=== PATIENT | female | born 1955 | race Caucasian/White ===

== ENCOUNTER → 2017-08-26 11:10 | Outpatient (CLI) | payer MEDICAID, SELFPAY ==
[2017-08-26 11:41] LABS: Basophils % 0.7 % (0.1-2.0); Eosinophils # 0.1 K/mm3 (0.0-0.4); Eosinophils % 2.3 % (0.1-12.0); Hematocrit 31.5 % (37.0-47.0); Hemoglobin 9.6 g/dL (12.2-16.2); Lymphocytes # 1.1 K/mm3 (0.7-4.5); Lymphocytes % 29.8 K/mm3 (10-50); Mean Corpuscular HGB Conc 30.6 g/dL (31.8-35.4); Mean Corpuscular Hemoglobin 26.3 pg (27.0-31.2); Mean Corpuscular Volume 86.2 fl (81-99); Mean Platelet Volume 8.2 fl (7.4-10.4); Monocytes # 0.3 K/mm3 (0.1-1.0); Monocytes % 8.1 % (1.7-9.3); Neutrophils # 2.2 K/mm3 (1.8-7.8); Neutrophils % 59.1 % (37.0-80.0); Platelet Count 277 K/mm3 (142-424); Red Blood Count 3.66 M/mm3 (4.20-5.40); Red Cell Distribution Width 13.4 % (11.5-17.5); White Blood Count 3.7 K/mm3 (4.8-10.8)
[2017-08-26 13:01] LABS: Alanine Aminotransferase 27 U/L (12-78); Albumin Level 3.4 gm/dL (3.4-5.0); Albumin/Globulin Ratio 1.1 (1.1-1.8); Alkaline Phosphatase 130 U/L (46-116); Anion Gap 9.9 mEq/L (5-15); Aspartate Amino Transferase 24 U/L (15-37); Bilirubin,Total 0.3 mg/dL (0.2-1.0); Blood Urea Nitrogen 13 mg/dL (7-18); Calcium 8.9 mg/dL (8.5-10.1); Carbon Dioxide 28 mmol/L (21.0-32.0); Chloride 107 mmol/L (98-107); Creatinine,Serum 0.59 mg/dL (0.55-1.02); Estimated Glomerular Filt Rate > 60 ml/min (>60); GFR (African American) > 60 ML/MIN (>60); Glucose 76 mg/dL (74-106); Potassium 3.9 mmoL/L (3.5-5.1); Sodium 141 mmol/L (136-145); Total Protein,Serum 6.4 gm/dL (6.4-8.2)
== END ==
PROVIDERS: PCP Family Medicine; Visit Provider Family Medicine
DX: M06.9 Rheumatoid arthritis, unspecified (principal); Z79.899 Other long term (current) drug therapy
CPT/HCPCS: 36415; 80053; 85025

== ENCOUNTER 2017-09-04 10:30 | Outpatient (RCR) | payer MEDICAID, SELFPAY | END 2017-09-04 23:59 | LOC: PT 10:30 | PROVIDERS: Family Provider Family Medicine; Visit Provider Orthopaedic Surgery Adult Reconstructive Orthopaedic Surgery | DX: M54.40 Lumbago with sciatica, unspecified side (principal) | CPT/HCPCS: 97010; 97012; 97014; G0283 ==

== ENCOUNTER 2017-09-06 11:34 | Emergency (ER) | payer MEDICAID, SELFPAY ==
[2017-09-06 12:09] VITALS: BP 95/74; PULSE 84; RESP 20; TEMP 37.3; O2SAT 95; BMI 35.7
--- NOTE | 2017-09-06 12:30 | HMH.EDUTC ---
[facility] [place] Clinical Impression: Influenza A Disposition: Home, Self-Care Condition on Discharge: Good Instructions: DI for Influenza -- Adult Additional Instructions: * Start Tamiflu today if you are going to take it. Discussed risks and possible benefits. * Lots of rest * Increase fluids, water, gatorade, powerade, pedialyte if /toddler/child * Monitor Temp. Tylenol every 4 hours as needed no more then 5 times a day or 4000mg in 24 hours and/or ibuprofen every 6 hours as needed no more then 3200mg in 24 hours (as long as your primary care doctor has told you that it is ok to take both) for fever/aches/pain. ER if fever no less than 101 despite tylenol and Ibuprofen * OTC cold/flu/sinus medication is ok but pick one. Do not take multiple different ones as they have similar ingredients and you can overdose on cold medication. * You (or your child) are contagious until no fever, aches, chills x 24 hours without medication for symptoms. Prescriptions: Oseltamivir Phosphate [Tamiflu 75mg Capsule] 75 mg PO BID #10 capsule Referrals: Jeronimo Guadarrama MD [Primary Care Provider] - Time of Disposition: 12:32 Medical Decision Making Vital Signs: 09/06/17 12:09 09/06/17 12:35 Temperature 99.1 F 99.1 F Temperature Source Temporal Artery Scan Pulse Rate 84 Pulse Rate [Left Brachial] 84 Respiratory Rate 20 20 Blood Pressure 95/74 Blood Pressure [Left Arm] 95/74 Blood Pressure Mean [Left Arm] 81 Blood Pressure Source [Left Arm] Automatic Cuff Blood Pressure Position [Left Arm] Sitting 02 Sat by Pulse Oximetry 95 Oxygen Delivery Method Room Air - Lab Data Lab results reviewed: Yes: I reviewed the patient's lab results. Lab Results 09/06/17 12:18: Influenza Type A Ag Positive A, Influenza Type B Ag Negative - Vishal Inquiry Pt receiving controlled substance: No [facility] [place] - General Stated complaint: Sore throat,headache,earache Time Seen by Provider: 09/06/17 12:00 Mode of Arrival: Ambulatory Source of Information: Patient Limitations: No Limitations Description of Symptoms (Recalled from Triage Doc. by RN): c/o jewell, cough, and sore throat HEENT Symptoms (Recalled from RN notes): Yes (jewell, sore throat) Resp Symptoms (Recalled from RN notes): Yes (cough) Skin Symptoms (Recalled from RN notes): No MS Symptoms (Recalled from RN notes): No Functional Status (Recalled from RN notes): n/a - History of Present Illness Provider Complaint: c/o I think I have the flu . Started yesterday evening with sore throat, rhinorrhea, nasal congestion. Woke up this morning with fatigue and cough. Has felt feverish and slightly achy but no fever or real body aches however takes 800mg ibuprofen TID for RA. Has had flu vaccine. No known sick contacts. Is not currently on immunosuppresant, last took May 2017. - Related Data Previous Rx's Medication Instructions Recorded Oseltamivir Phosphate [Tamiflu 75 mg PO BID #10 capsule 09/06/17 75mg Capsule] Allergies Allergy/AdvReac Type Severity Reaction Status Date / Time No Known Allergies Allergy Verified 09/06/17 12:18 - Worker's Comp Is this a Worker's Comp case?: No H History I have reviewed the patient's past medical history: Yes (RA, osteoarthritis, depression, borderline HTN) Medical History: Denies:: Cancer, Diabetes Mellitus Type 1, Diabetes Mellitus Type 2, MRSA Laterality Cases: Left: Total Hip Replacement Amputation: No Fractures: No - *Social History Smoking Status: Never smoker Alcohol Intake: never - Psychiatric History Expresses thoughts of harming self/others: None Suicide Plan Description: No Plan ROS Obtained: Yes Systems reviewed as appropriate & no additional complaints - Constitutional Constitutional: Reports as per HPI, Reports chills, Denies poor appetite - Eyes Eyes: Denies eye discharge - ENT Ears, Nose, Mouth, and Throat: Denies difficulty swallowing, Reports otalgia, Reports nasal congestion, R
[2017-09-06 12:32] LABS: UTC Influenza A Antigen Positive (Negative); UTC Influenza B Antigen Negative (Negative)
[2017-09-06 12:35] VITALS: BP 95/74; PULSE 84; RESP 20; TEMP 37.3; O2SAT 96
== END 2017-09-06 12:40 | disposition home or self-care (01) ==
PROVIDERS: Emergency Provider Nurse Practitioner Family; Family Provider Family Medicine; PCP Family Medicine
DX: J10.1 Influenza due to other identified influenza virus with other respiratory manifestations (principal); R03.0 Elevated blood-pressure reading, without diagnosis of hypertension
CPT/HCPCS: 87804; 99202

== ENCOUNTER → 2017-09-10 12:01 | Outpatient (CLI) | payer MEDICAID, SELFPAY ==
--- NOTE | 2017-09-10 12:07 | XR_ITS ---
XR chest 2V HISTORY: ITS.REASON: BRONCHITIS, cough ORDERING PHYSICIAN: STEPHANIE Toussaint PATIENT AGE: 62 years COMPARISON: 06/15/2017 FINDINGS: The cardiomediastinal silhouette and pulmonary vascularity are within normal limits. The lungs are clear without infiltrates, suspicious nodules, or pleural effusions. There are degenerative changes in the lower thoracic spine with mild lower thoracic curvature convex right. Severe osteoarthritic changes are present in the shoulders. IMPRESSION: 1. No acute finding. 2. Severe osteoarthritis of the shoulders
== END ==
PROVIDERS: PCP Family Medicine; Visit Provider Physician Assistant
DX: J40 Bronchitis, not specified as acute or chronic (principal)
CPT/HCPCS: 71046

== ENCOUNTER 2017-09-17 11:00 | Outpatient (RCR) | payer MEDICAID, SELFPAY | END 2017-09-17 11:01 | disposition home or self-care (01) | LOC: PT 11:00 | PROVIDERS: Family Provider Family Medicine; Visit Provider Orthopaedic Surgery Adult Reconstructive Orthopaedic Surgery | DX: Z96.651 Presence of right artificial knee joint (principal); M25.561 Pain in right knee | CPT/HCPCS: 97010; 97014; 97110; 97140; G0283 ==

== ENCOUNTER → 2017-11-09 14:06 | Outpatient (CLI) | payer MEDICARE, MEDICAID, SELFPAY ==
--- NOTE | 2017-11-09 14:08 | CA_ITS ---
PROCEDURE: 2-D M-mode and color Doppler study INDICATIONS FOR THE TEST: Chest pain COPD Heart Murmur Tobacco Smoking Palpitations FatigueX Syncope Edema HypertensionXDiabetes Mellitus Rheumatic Fever SOB DOEXObesityXHyperlipidemiaX Family History HD Additional History PATIENT INFORMATION HEIGHT: 64 WEIGHT:250 GENDER: Female B/P:136/82 2-D/M-MODE INTERPRETATION: 2-D MEASUREMENTS OBSERVED VALUES IN CMS Right Ventricular Dimension (RVDd) 1.8 Interventricular Septum (Thickness)(IVsd) 1.1 Left Ventricular Internal Dimensions(LVIDd) 4.3 Left Ventricular Posterior Wall (Thickness)(LVPWd) 1.0 Aortic Root 3.7 Aortic Cusp Separation 2.0 Left Atrial Dimensions (LAD) 3.7 2D 1. Left atrium is mildly enlarged, left ventricle is normal size, there is mild qualitative concentric left ventricular hypertrophy, visually estimated ejection fraction 55% with no obvious regional wall motion abnormality. 2. The right atrium and right ventricle are normal size and contractility. 3. The aortic valve is minimally thickened and fibrosed. 4. The mitral and tricuspid valve leaflets are minimally thickened. 5. The pulmonic valve is poorly visualized. 6. No significant pericardial effusion noted. DOPPLER INTERROGATION: Doppler interrogation of the aortic, mitral and tricuspid valvular presence of mild mitral and tricuspid regurgitation, calculated right ventricular systolic pressure is 39 mmHg consistent with mild pulmonary hypertension, grade 1 diastolic dysfunction seen with tissue Doppler evidence of raised left atrial pressure. CONCLUSION: 1. Mildly enlarged left atrium, normal left ventricular size, mild qualitative concentric left ventricular hypertrophy, visually estimated ejection fraction 55% with no obvious regional wall motion abnormality, grade 1 diastolic dysfunction seen with tissue Doppler evidence of grade left atrial pressure. 2. Mild mitral and tricuspid regurgitation, calculated right ventricular systolic pressure 39 mmHg consistent with mild pulmonary hypertension. 3. No significant pericardial effusion noted.
[2017-11-09 15:21] LABS: Basophils % 0.3 % (0.1-2.0); Eosinophils # 0.1 K/mm3 (0.0-0.4); Eosinophils % 1.1 % (0.1-12.0); Hematocrit 39.1 % (37.0-47.0); Hemoglobin 12.3 g/dL (12.2-16.2); Lymphocytes # 0.9 K/mm3 (0.7-4.5); Mean Corpuscular HGB Conc 31.4 g/dL (31.8-35.4); Mean Corpuscular Hemoglobin 29.1 pg (27.0-31.2); Mean Corpuscular Volume 92.9 fl (81-99); Mean Platelet Volume 7.7 fl (7.4-10.4); Monocytes # 0.3 K/mm3 (0.1-1.0); Monocytes % 8.4 % (1.7-9.3); Neutrophils # 2.7 K/mm3 (1.8-7.8); Neutrophils % 67.2 % (37.0-80.0); Platelet Count 209 K/mm3 (142-424); Red Blood Count 4.21 M/mm3 (4.20-5.40); Red Cell Distribution Width 18.3 % (11.5-17.5); White Blood Count 4.1 K/mm3 (4.8-10.8)
[2017-11-09 15:44] LABS: Alanine Aminotransferase 40 U/L (12-78); Albumin Level 3.6 gm/dL (3.4-5.0); Alkaline Phosphatase 131 U/L (46-116); Anion Gap 10.6 mEq/L (5-15); Aspartate Amino Transferase 30 U/L (15-37); Bilirubin,Total 0.3 mg/dL (0.2-1.0); Blood Urea Nitrogen 15 mg/dL (7-18); Calcium 9.2 mg/dL (8.5-10.1); Carbon Dioxide 30 mmol/L (21.0-32.0); Chloride 104 mmol/L (98-107); Creatinine,Serum 0.55 mg/dL (0.55-1.02); Estimated Glomerular Filt Rate 113 ml/min (>60); GFR (African American) 136 ML/MIN (>60); Globulin 3.7 gm/dl (1.3-3.2); Glucose 92 mg/dL (74-106); Potassium 4.6 mmoL/L (3.5-5.1); Sodium 140 mmol/L (136-145); Total Protein,Serum 7.3 gm/dL (6.4-8.2)
== END ==
PROVIDERS: Internal Medicine Rheumatology; Family Provider Family Medicine; PCP Family Medicine; Visit Provider Internal Medicine
DX: R06.09 Other forms of dyspnea (principal); I25.118 Atherosclerotic heart disease of native coronary artery with other forms of angina pectoris; I10 Essential (primary) hypertension; R07.89 Other chest pain; E78.4 Other hyperlipidemia
CPT/HCPCS: 36415; 80053; 85025; 93306

== ENCOUNTER → 2017-11-23 10:14 | Outpatient (CLI) | payer MEDICARE, MEDICAID, SELFPAY ==
--- NOTE | 2017-11-23 10:20 | MM_ITS ---
MM Dig screening mamm BI w/CAD CAD Screening COMPARISON: Digital mammograms 11/27/2016 and 09/14/2015 INDICATION: There is no personal or family history of breast cancer TECHNIQUE: Standard CC and MLO images were obtained. R2 CAD reviewed. FINDINGS: Scattered fibroglandular densities are seen throughout both breast on the background of fatty breast parenchyma. There is no new or suspicious lesion in either breast and no suspicious microcalcifications. IMPRESSION: Fibrofatty parenchyma with no suspicious lesion seen BI-RADS Category: 1 Negative RECOMMENDED FOLLOW-UP: 1YR - 1 YEAR FOLLOW-UP (A letter has been sent to the patient regarding results of the study.)
[2017-11-23 12:21] LABS: Anion Gap 9.6 mEq/L (5-15); Blood Urea Nitrogen 13 mg/dL (7-18); Carbon Dioxide 32 mmol/L (21.0-32.0); Chloride 105 mmol/L (98-107); Creatinine,Serum 0.61 mg/dL (0.55-1.02); Estimated Glomerular Filt Rate 100 ml/min (>60); GFR (African American) 121 ML/MIN (>60); Glucose 76 mg/dL (74-106); Potassium 3.6 mmoL/L (3.5-5.1); Sodium 143 mmol/L (136-145)
== END ==
PROVIDERS: Physician Assistant; PCP Family Medicine; Visit Provider Family Medicine
DX: I25.10 Atherosclerotic heart disease of native coronary artery without angina pectoris (principal); R07.9 Chest pain, unspecified; R06.00 Dyspnea, unspecified; E78.5 Hyperlipidemia, unspecified; I10 Essential (primary) hypertension; I51.9 Heart disease, unspecified; I27.20 Pulmonary hypertension, unspecified; Z12.31 Encounter for screening mammogram for malignant neoplasm of breast
CPT/HCPCS: 36415; 77067; 80048

== ENCOUNTER 2017-12-21 09:30 | Outpatient (RCR) | payer MEDICARE, MEDICAID, SELFPAY | END 2017-12-21 09:31 | disposition home or self-care (01) | LOC: PT 09:30 | PROVIDERS: Family Provider Family Medicine; PCP Family Medicine; Visit Provider Internal Medicine Rheumatology | DX: M79.1 Myalgia (principal) | CPT/HCPCS: 97010; 97014; 97035; 97110; 97140; G0283 ==

== ENCOUNTER → 2018-03-04 11:22 | Outpatient (CLI) | payer MEDICARE, SELFPAY ==
[2018-03-04 12:00] LABS: Basophils % 0.4 % (0.1-2.0); Eosinophils # 0.1 K/mm3 (0.0-0.4); Eosinophils % 1.2 % (0.1-12.0); Hematocrit 44.1 % (37.0-47.0); Hemoglobin 13.8 g/dL (12.2-16.2); Lymphocytes # 1.3 K/mm3 (0.7-4.5); Lymphocytes % 21.6 K/mm3 (10-50); Mean Corpuscular HGB Conc 31.3 g/dL (31.8-35.4); Mean Corpuscular Hemoglobin 31.9 pg (27.0-31.2); Mean Corpuscular Volume 101.9 fl (81-99); Mean Platelet Volume 7.5 fl (7.4-10.4); Monocytes # 0.3 K/mm3 (0.1-1.0); Monocytes % 5.1 % (1.7-9.3); Neutrophils # 4.3 K/mm3 (1.8-7.8); Neutrophils % 71.7 % (37.0-80.0); Platelet Count 257 K/mm3 (142-424); Red Blood Count 4.33 M/mm3 (4.20-5.40); Red Cell Distribution Width 13.7 % (11.5-17.5)
[2018-03-04 12:25] LABS: Alanine Aminotransferase 28 U/L (12-78); Albumin Level 3.7 gm/dL (3.4-5.0); Albumin/Globulin Ratio 1.1 (1.1-1.8); Alkaline Phosphatase 115 U/L (46-116); Anion Gap 11.7 mEq/L (5-15); Aspartate Amino Transferase 20 U/L (15-37); Bilirubin,Total 0.5 mg/dL (0.2-1.0); Blood Urea Nitrogen 11 mg/dL (7-18); Calcium 9.2 mg/dL (8.5-10.1); Carbon Dioxide 29 mmol/L (21.0-32.0); Chloride 108 mmol/L (98-107); Creatinine,Serum 0.65 mg/dL (0.55-1.02); Estimated Glomerular Filt Rate 93 ml/min (>60); GFR (African American) 113 ML/MIN (>60); Globulin 3.3 gm/dl (1.3-3.2); Glucose 72 mg/dL (74-106); Potassium 3.7 mmoL/L (3.5-5.1); Sodium 145 mmol/L (136-145)
== END ==
PROVIDERS: Visit Provider Internal Medicine Rheumatology
DX: Z79.899 Other long term (current) drug therapy (principal); M06.9 Rheumatoid arthritis, unspecified
CPT/HCPCS: 36415; 80053; 85025

== ENCOUNTER → 2018-05-31 13:34 | Outpatient (CLI) | payer MEDICARE, SELFPAY ==
[2018-05-31 15:12] LABS: Basophils % 0.4 % (0.1-2.0); Eosinophils # 0.1 K/mm3 (0.0-0.4); Eosinophils % 1.5 % (0.1-12.0); Hemoglobin 11.8 g/dL (12.2-16.2); Lymphocytes # 1.7 K/mm3 (0.7-4.5); Lymphocytes % 38.8 K/mm3 (10-50); Mean Corpuscular HGB Conc 32.7 g/dL (31.8-35.4); Mean Platelet Volume 7.1 fl (7.4-10.4); Monocytes # 0.3 K/mm3 (0.1-1.0); Monocytes % 7.3 % (1.7-9.3); Neutrophils # 2.2 K/mm3 (1.8-7.8); Neutrophils % 51.9 % (37.0-80.0); Platelet Count 259 K/mm3 (142-424); Red Blood Count 3.56 M/mm3 (4.20-5.40); Red Cell Distribution Width 13.8 % (11.5-17.5); White Blood Count 4.3 K/mm3 (4.8-10.8)
[2018-05-31 15:45] LABS: Alanine Aminotransferase 23 U/L (12-78); Albumin Level 3.5 gm/dL (3.4-5.0); Albumin/Globulin Ratio 1.2 (1.1-1.8); Alkaline Phosphatase 117 U/L (46-116); Anion Gap 10.1 mEq/L (5-15); Aspartate Amino Transferase 17 U/L (15-37); Bilirubin,Total 0.4 mg/dL (0.2-1.0); Blood Urea Nitrogen 11 mg/dL (7-18); Calcium 8.7 mg/dL (8.5-10.1); Carbon Dioxide 29 mmol/L (21.0-32.0); Chloride 105 mmol/L (98-107); Creatinine,Serum 0.59 mg/dL (0.55-1.02); Estimated Glomerular Filt Rate 104 ml/min (>60); GFR (African American) 125 ML/MIN (>60); Glucose 94 mg/dL (74-106); Potassium 4.1 mmoL/L (3.5-5.1); Sodium 140 mmol/L (136-145); Total Protein,Serum 6.5 gm/dL (6.4-8.2)
== END ==
PROVIDERS: PCP Family Medicine; Visit Provider Internal Medicine Rheumatology
DX: Z79.899 Other long term (current) drug therapy (principal); M06.9 Rheumatoid arthritis, unspecified
CPT/HCPCS: 36415; 80053; 85025

== ENCOUNTER → 2018-07-19 07:53 | Outpatient (CLI) | payer MEDICARE, SELFPAY ==
--- NOTE | 2018-07-19 07:55 | MR_ITS ---
MR head/brain wo con HISTORY: ITS.REASON: headache, neck pain ORDERING PHYSICIAN: Deborah Sal MD PATIENT AGE: 63 years Comparison: None TECHNIQUE: Standard multiplanar multiecho sequences are performed without contrast. FINDINGS: No midline shift, mass effect, intracranial hemorrhage, or hydrocephalus is evident. No evidence of acute infarction. No intra or extra-axial mass. There is normal roberts-white matter differentiation. The pituitary and optic chiasm are unremarkable. Unremarkable craniocervical junction. The cerebellopontine angles, cerebellum, and brainstem are unremarkable. Minimal amount of fluid is present in the left mastoid sinus. No paranasal sinus air-fluid level. IMPRESSION: No acute intracranial findings, negative MRI of the brain Minimal fluid in the left mastoid sinus
== END ==
PROVIDERS: PCP Family Medicine; Visit Provider Specialist
DX: G47.33 Obstructive sleep apnea (adult) (pediatric) (principal); M54.2 Cervicalgia; R51 Headache
CPT/HCPCS: 70551

== ENCOUNTER → 2018-08-02 12:27 | Outpatient (CLI) | payer MEDICARE, SELFPAY ==
--- NOTE | 2018-08-02 12:32 | XR_ITS ---
XR foot wt bearing LT 3V HISTORY: ITS.REASON: pain ORDERING PHYSICIAN: Roma Hernandez DPM PATIENT AGE: 63 years COMPARISON: 02/02/2017 FINDINGS: There is moderate hallux valgus with osteoarthritis of the first metatarsal phalangeal joint. The first metatarsal-phalangeal angle is approximately 35 degrees previously 30 degrees. Osteoarthritis is present at the first MTP joint and at the first metatarsal tarsal joint. Hypertrophic changes are present at the distal first metatarsal. There is pes planus with osteoarthritis of the talonavicular joint with bony hypertrophy dorsally. No fracture or dislocation. No lytic or blastic change. IMPRESSION: Moderate hallux valgus with osteoarthritis of the first MTP joint and the first metatarsal tarsal joint with bunion formation and with pes planus and osteoarthritis of the talonavicular joint
--- NOTE | 2018-08-02 12:32 | XR_ITS ---
XR ankle wt bearing RT min 3V HISTORY: Ankle pain ITS.REASON: pain ORDERING PHYSICIAN: Roma Hernandez DPM PATIENT AGE: 63 years Comparison: None FINDINGS: Tibiotalar joint has an unremarkable appearance. There is pes planus with osteoarthritis of the foot as described in report. IMPRESSION: Negative ankle
--- NOTE | 2018-08-02 12:32 | XR_ITS ---
XR foot wt bearing RT 3V HISTORY: Foot pain ITS.REASON: pain ORDERING PHYSICIAN: Roma Hernandez DPM PATIENT AGE: 63 years COMPARISON: 02/02/2017 FINDINGS: There are moderate osteoarthritic changes of the first metatarsal tarsal joint with bony hypertrophy with osteoarthritis also at the second third fourth and fifth metatarsal tarsal joints which appear slightly worse on today's study. Mild osteoarthritis also noted at the talar calcaneal joint. Prominent bony hypertrophy dorsally at the talonavicular joint with pes planus. 10 mm calcaneal spur. Flexion deformity of the second toe. No fracture or dislocation. IMPRESSION: Osteoarthritic changes are present at the tarsometatarsal junction, talonavicular joint, and talocalcaneal joint. These findings have progressed compared to the previous exam and there is also mild to moderate pes planus
--- NOTE | 2018-08-02 12:32 | XR_ITS ---
XR ankle wt bearing LT min 3V : ITS.REASON: pain ORDERING PHYSICIAN: Roma Hernandez DPM PATIENT AGE: 63 years FINDINGS: No fracture or dislocation. No lytic or blastic change. There is normal mineralization.. The joint spaces are well-preserved. There is pes planus. Osteoarthritic changes are present at the talonavicular joint with hypertrophic changes. IMPRESSION: Negative ankle Osteoarthritic changes of the foot. Please see foot report for further description
== END ==
PROVIDERS: PCP Family Medicine; Visit Provider Podiatrist
DX: M25.571 Pain in right ankle and joints of right foot; M25.572 Pain in left ankle and joints of left foot; M79.671 Pain in right foot; M79.672 Pain in left foot
CPT/HCPCS: 73610; 73630

== ENCOUNTER → 2018-08-09 14:55 | Outpatient (CLI) | payer MEDICARE, SELFPAY ==
--- NOTE | 2018-08-09 14:56 | US_ITS ---
US Arterial Ankle Brachial Ind HISTORY: ITS.REASON: Skin ChangesNo rest pain diabetic previous angioplasty smoker previously hypertension. TECHNIQUE: Segmental pressures obtained of both right and left leg. These are compared to brachial blood pressure to yield index at each level sampled including summary RAFA. The data sheets from the procedure are available in PACS FINDINGS Rest study only performed today No prior studies available for comparison. Blood pressures reported are in millimeters mercury. RIGHT LEG RAFA = 1.1. Right TBI = 0.6 Brachial BP: 118 Thigh BP: BP 132 with index 1.12 Calf BP: BP 160 with index 0.98 Ankle PT: BP 128 with index 1.08 Ankle DP : BP 117 with index 0.99 Digit =BP 70 with index 0.59 LEFT LEG RAFA = 1.0 Left TBI = 0.5 Brachial BPD: BP 117 Thigh BP: BP 148 with index 1.25 Calf BP: BP 123 with index 1.04 Ankle PT:BP 120 with index 1.02 Ankle DP: BP 128 with index 1.08 Digit = BP 63 with index 0.53 Normal pulses and waveforms bilateral waveforms are perhaps slightly more robust at right ankle thanLeft but satisfactory bilaterally IMPRESSION:...... Waveforms and pulses normal bilaterally. Normal ABIs bilaterally. Diminished TBIs, on left more than right RIGHT LEG RAFA = 1.1. Right TBI = 0.6 LEFT LEG RAFA = 1.0 Left TBI = 0.5
[2018-08-09 16:28] LABS: Basophils % 0.3 % (0.1-2.0); Eosinophils # 0.1 K/mm3 (0.0-0.4); Hematocrit 38.2 % (37.0-47.0); Hemoglobin 12.2 g/dL (12.2-16.2); Lymphocytes # 1.5 K/mm3 (0.7-4.5); Lymphocytes % 23.9 % (10-50); Mean Corpuscular Hemoglobin 32.9 pg (27.0-31.2); Mean Corpuscular Volume 102.7 fl (81-99); Mean Platelet Volume 7.3 fl (7.4-10.4); Monocytes # 0.4 K/mm3 (0.1-1.0); Monocytes % 6.6 % (1.7-9.3); Neutrophils # 4.1 K/mm3 (1.8-7.8); Neutrophils % 67.2 % (37.0-80.0); Platelet Count 247 K/mm3 (142-424); Red Blood Count 3.72 M/mm3 (4.20-5.40); Red Cell Distribution Width 13.2 % (11.5-17.5); White Blood Count 6.2 K/mm3 (4.8-10.8)
[2018-08-09 19:05] LABS: Alanine Aminotransferase 27 U/L (12-78); Albumin Level 3.3 gm/dL (3.4-5.0); Albumin/Globulin Ratio 1.1 (1.1-1.8); Alkaline Phosphatase 122 U/L (46-116); Aspartate Amino Transferase 16 U/L (15-37); Bilirubin,Total 0.2 mg/dL (0.2-1.0); Blood Urea Nitrogen 14 mg/dL (7-18); Calcium 8.7 mg/dL (8.5-10.1); Carbon Dioxide 28 mmol/L (21.0-32.0); Chloride 104 mmol/L (98-107); Creatinine,Serum 0.79 mg/dL (0.55-1.02); Estimated Glomerular Filt Rate 74 ml/min (>60); GFR (African American) 90 ML/MIN (>60); Globulin 3.1 gm/dl (1.3-3.2); Glucose 102 mg/dL (74-106); Sodium 140 mmol/L (136-145); Total Protein,Serum 6.4 gm/dL (6.4-8.2)
== END ==
PROVIDERS: PCP Family Medicine; Visit Provider Podiatrist
DX: R09.89 Other specified symptoms and signs involving the circulatory and respiratory systems (principal)
CPT/HCPCS: 36415; 80053; 85025; 93922

== ENCOUNTER → 2018-08-13 12:01 | Outpatient (CLI) | payer MEDICARE, MEDICAID, SELFPAY ==
[2018-08-13 11:08] LABS: C-Reactive Protein 0.5 mg/L (0.0-0.9)
[2018-08-13 11:43] LABS: Erythrocyte Sedimentation Rate 42 mm/hr (0-30)
== END ==
PROVIDERS: Visit Provider Specialist
DX: R51 Headache (principal); M06.9 Rheumatoid arthritis, unspecified; Z79.899 Other long term (current) drug therapy
CPT/HCPCS: 36415; 85651; 86140

== ENCOUNTER → 2018-09-06 15:04 | Outpatient (CLI) | payer MEDICARE, MEDICAID, SELFPAY ==
[2018-09-10 17:06] LABS: QuantiFERON-TB Gold Plus Negative (Negative)
== END ==
PROVIDERS: Visit Provider Internal Medicine Rheumatology
DX: M06.9 Rheumatoid arthritis, unspecified (principal); Z79.899 Other long term (current) drug therapy
CPT/HCPCS: 36415; 86480

== ENCOUNTER 2018-12-16 10:00 | Outpatient (RCR) | payer MEDICARE, MEDICAID, SELFPAY ==
--- NOTE | 2018-08-30 13:28 | HMH.PTOPEV ---
PT Outpatient Evaluation Rehab PT Outpatient Evaluation Start: 08/30/18 09:36 Freq: Status: Active Protocol: Document 08/30/18 10:49 GERBER (Rec: 08/30/18 10:59 PHORNE [id number]) Electronically Signed By Jonathan Hammer, PT 08/30/18 10:49 Outpatient Therapy Subjective History Subjective History Pt is a 63 nyowf who presents with c/o frequent intermittent headaches x ~ 1 yr. She reports gradually worsening headache with insidious onset of symptoms. She reports infrequent episodes of dizziness as well. She had MRI of the brain which was negative for any known pathology. PMH: anxiety, depression, CAD, HTN, asthma, migraine, left ARI, CCY, RA. Chief Complaint Pain Symptom Type Ache Throb Symptoms Relieved By Prescription Meds Symptoms Aggravated By Physical Activity Prior Functional Limitations Housework Driving Current Functional Limitations Housework Driving Symptom Description Intermittent Level of pain today (0-10) 5 Pain scale - at its worst (0-10) 10 Cervical Eval Palpation Cervical Muscles R Cervical Paraspinal L Cervical Paraspinal R Suboccipital L Suboccipital R Upper Trapezius L Upper Trapezius Cervical/Thoracic Palpation Findings Tenderness Spasm Muscle Guarding Flexibility Deficits Upper Trapezius Muscle Length (R) Mild Tightness (L) Mild Tightness Levaetor Scapulae Muscle Length (R) Mild Tightness (L) Mild Tightness Passive Joint Mobility Cervical PIVM WNL: R OA L OA R AA L AA R C2/3 L C2/3 R C3/4 L C3/4 R C4/5 L C4/5 R C5/6 L C5/6 R C6/7 L C6/
--- NOTE | 2018-12-14 10:53 | HMH.RHREAS ---
Rehab Reassessment Rehab OP Re-assessment Start: 12/14/18 10:46 Freq: Status: Active Protocol: Document 12/14/18 10:48 GERBER (Rec: 12/14/18 10:52 GERBER [id number]) Electronically Signed By Jonathan Hammer, PT 12/14/18 10:48 Rehab Re-assessment Subjective Subjective Pt reports less headache since receiving injections for migraines in her neck (4-5 per month). Pt missed multiple appts over past 1-2 mos due to family issues and admits to limited performance of HEP. Objective Objective Notes Cervicel AROM: Flex= 0-35, Ext = 0-60, R SB= 0-35, L SB= 0-35 , R rot= 0-60, L rot= 0-55 Assessment Progress Assessment Slower Than Expected Assessment Notes Pt with significant improvement in cervical rotation, otherwise no changes . Patient goals met ST,3,[address] LT,2,3,4 Revised Goals none Plan Plan Continue per initial POC. Frequency of Therapy 2x/wk Duration of therapy 8 wks Time and Billing Re-Eval Time 15 Re-Eval Billing Units 1 PHYSICIAN CERTIFICATION: I certify the specified therapy services for Vashti Ulrich are required, authorized, and reviewed every 30 days.
== END 2018-12-16 10:05 | disposition home or self-care (01) ==
LOC: PT 10:00
PROVIDERS: Visit Provider Specialist
DX: R51 Headache (principal)
CPT/HCPCS: 97010; 97012; 97014; 97035; 97110; 97140; 97163; 97164; G0283

== ENCOUNTER 2018-12-17 11:00 | Outpatient (RCR) | payer MEDICARE, MEDICAID, SELFPAY ==
--- NOTE | 2018-10-29 15:30 | HMH.PTOPWND ---
Rehab Outpt Wound Evaluation Rehab OP Wound Evaluation Start: 10/29/18 15:21 Freq: Status: Active Protocol: Document 10/29/18 15:21 GERBER (Rec: 10/29/18 15:30 PHORELOISA [id number]) Electronically Signed By Jonathan Ana Jaquelin, YENIFER 10/29/18 15:21 Subjective/History History History Pt is a 63 yowf who presents with c/o left LE edema x ~ 20 yrs with insidious onset and gradually worsening symptoms. 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 She reports no c/o numbness or tingling in the left LE, but does reports stiffness in the left ankle. Firm tissue quality noted throughout the lower left leg without pitting, symptoms show possible lipidema. She has hx of florian TKA, left ARI, gastric sleeve, CCY, HTN, RA, and OA. Subjective Subjective She reports no c/o pain at this time, but is tender to palpation. Lymphedema Eval Classification of Lymphedema Secondary Lymphedema Yes Stemmer's sign Stemmer's Sign no Stage of Lymphedema Lymphedema stages Stage 0 (subjective c/o heaviness and aching) Skin Changes Dry Skin Yes Discoloration of Skin Yes Pain Scale Pain Scale (0-10) 5 Affected Extremities Areas Affected by Lymphedema/Edema Left Lower Extremity Manual Lymphatic Drainage Treatment Area MLD Treatment Area Left Lower Extremity Wound Problems/Impairments Impairments Problems/Impairmments Palpation Tenderness Impaired Endurance Impaired Gait Pattern Impaired Walking Impaired Recreational Activities Increased Edema Lymphedema Present Subjective C/O Pain Impaired Self Care/Self Management Prognosis Rehab Potential Good Clinical Impression Consistent with Diagnosis Yes Short Term Goals Number of Weeks 4 Decreased Palpation Tenderness Yes: to min Increase Ability to Stand Yes Decrease Subjective C/O Pain Y
== END 2018-12-17 11:05 | disposition home or self-care (01) ==
LOC: PT 11:00
PROVIDERS: Visit Provider Podiatrist
DX: I89.0 Lymphedema, not elsewhere classified (principal); R60.0 Localized edema
CPT/HCPCS: 97140; 97162; 97760

== ENCOUNTER → 2019-03-03 11:29 | Outpatient (CLI) | payer MEDICARE, MEDICAID, SELFPAY ==
[2019-03-03 11:34] LABS: MANUAL DIFFERENTIAL MANUAL DIFFERENTIAL (MANUAL DIFF)
[2019-03-03 11:56] LABS: Basophils % 0.3 % (0.1-2.0); Eosinophils # 0.1 K/mm3 (0.0-0.4); Hematocrit 36.6 % (37.0-47.0); Hemoglobin 11.5 g/dL (12.2-16.2); Lymphocytes # 1.4 K/mm3 (0.7-4.5); Lymphocytes % 32.1 % (10-50); Mean Corpuscular HGB Conc 31.5 g/dL (31.8-35.4); Mean Corpuscular Volume 98.3 fl (81-99); Monocytes # 0.3 K/mm3 (0.1-1.0); Neutrophils # 2.6 K/mm3 (1.8-7.8); Neutrophils % 59.6 % (37.0-80.0); Platelet Count 229 K/mm3 (142-424); Red Blood Count 3.72 M/mm3 (4.20-5.40); Red Cell Distribution Width 14.1 % (11.5-17.5); White Blood Count 4.4 K/mm3 (4.8-10.8)
[2019-03-03 12:43] LABS: Hemoglobin A1C 5.4 % (0.0-7.0)
[2019-03-03 15:41] LABS: Alanine Aminotransferase 25 U/L (12-78); Albumin Level 3.4 gm/dL (3.4-5.0); Albumin/Globulin Ratio 1.2 (1.1-1.8); Alkaline Phosphatase 100 U/L (46-116); Anion Gap 13.8 mEq/L (5-15); Aspartate Amino Transferase 21 U/L (15-37); Bilirubin,Total 0.3 mg/dL (0.2-1.0); Blood Urea Nitrogen 11 mg/dL (7-18); Calcium 9.2 mg/dL (8.5-10.1); Carbon Dioxide 25 mmol/L (21.0-32.0); Chloride 105 mmol/L (98-107); Creatinine,Serum 0.71 mg/dL (0.55-1.02); Estimated Glomerular Filt Rate 84 ml/min (>60); GFR (African American) 101 ML/MIN (>60); Globulin 2.9 gm/dl (1.3-3.2); Glucose 85 mg/dL (74-106); Potassium 3.8 mmoL/L (3.5-5.1); Sodium 140 mmol/L (136-145); Total Protein,Serum 6.3 gm/dL (6.4-8.2); Uric Acid 4.9 mg/dL (2.6-7.2)
[2019-03-03 16:20] LABS: C-Reactive Protein < 0.2 mg/L (0.0-0.9)
[2019-03-03 17:32] LABS: Erythrocyte Sedimentation Rate 35 mm/hr (0-30)
[2019-03-03 17:50] LABS: Eosinophils % 2 % (0-3); Lymphocytes % 28 % (10-50); Monocytes % 4 % (2-9); Neutrophils % 66 % (42-76); Platelet Estimate Normal; RBC Morphology Normal; Total Cells Counted 100
[2019-03-04 17:13] LABS: Antinuclear Antibodies, IFA Positive (.)
[2019-03-04 17:14] LABS: RA Latex Turbid. 71.5 IU/mL (0.0-13.9); Vitamin D 25 Hydroxy 42.8 ng/mL (30.0-100.0)
== END ==
PROVIDERS: Visit Provider Podiatrist
DX: R60.0 Localized edema (principal); Z83.3 Family history of diabetes mellitus; M06.9 Rheumatoid arthritis, unspecified; Z79.899 Other long term (current) drug therapy
CPT/HCPCS: 36415; 80053; 82652; 83036; 84550; 85007; 85014; 85018; 85048; 85049; 85651; 86038; 86140; 86431

== ENCOUNTER → 2019-03-14 10:47 | Outpatient (CLI) | payer MEDICARE, SELFPAY ==
--- NOTE | 2019-03-14 10:49 | XR_ITS ---
XR DEXA axial skeleton HISTORY: ITS.REASON: Surgical Planning ORDERING PHYSICIAN: Roma Hernandez DPM PATIENT AGE: 63 years COMPARISON: None FINDINGS: There are degenerative changes in the lumbar spine causing false elevation of the bone density measurement. The BMD measured at the right femoral neck is 0.852 g/cm squared with a T score of -1.3. This is considered Osteopenic according to the World Health Organization criteria. Fracture risk is Moderate. Treatment is advised. IMPRESSION: Osteopenia. Multiple levels of lumbar spine chronic intervertebral osteochondrosis causing false elevation of bone density measurement in the lumbar area.
--- NOTE | 2019-03-14 11:19 | MM_ITS ---
MM Dig screening mamm BI w/CAD CAD Screening COMPARISON: Digital mammograms with CAD 11/23/2017 and 11/27/2016 INDICATION: There is no personal or family history of breast cancer TECHNIQUE: Standard CC and MLO images were obtained. R2 CAD reviewed. FINDINGS: The breasts are composed primarily of fat with minimal scattered fibroglandular densities in each breast. There are tiny benign-appearing nodular densities near the axilla tails of each breast. These are likely small intramammary nodes. There is no suspicious lesion and there are no suspicious microcalcifications. IMPRESSION: Fibrofatty parenchyma no suspicious lesion seen BI-RADS Category: 2 Benign Finding(s) RECOMMENDED FOLLOW-UP: 1YR - 1 YEAR FOLLOW-UP (A letter has been sent to the patient regarding results of the study.)
== END ==
PROVIDERS: PCP Family Medicine; Visit Provider Podiatrist
DX: M81.0 Age-related osteoporosis without current pathological fracture (principal); Z12.31 Encounter for screening mammogram for malignant neoplasm of breast
CPT/HCPCS: 77067; 77080

== ENCOUNTER → 2019-03-28 12:41 | Outpatient (CLI) | payer MEDICARE, MEDICAID, SELFPAY ==
[2019-03-28 13:08] LABS: Basophils % 0.4 % (0.1-2.0); Eosinophils # 0.1 K/mm3 (0.0-0.4); Eosinophils % 1.1 % (0.1-12.0); Hematocrit 39.4 % (37.0-47.0); Hemoglobin 12.5 g/dL (12.2-16.2); Lymphocytes # 1.3 K/mm3 (0.7-4.5); Lymphocytes % 25.7 % (10-50); Mean Corpuscular HGB Conc 31.8 g/dL (31.8-35.4); Mean Corpuscular Volume 103.8 fl (81-99); Mean Platelet Volume 7.7 fl (7.4-10.4); Monocytes # 0.3 K/mm3 (0.1-1.0); Monocytes % 5.7 % (1.7-9.3); Neutrophils # 3.4 K/mm3 (1.8-7.8); Neutrophils % 67.1 % (37.0-80.0); Platelet Count 258 K/mm3 (142-424); Red Cell Distribution Width 14.5 % (11.5-17.5); White Blood Count 5.1 K/mm3 (4.8-10.8)
[2019-03-28 14:50] LABS: Alanine Aminotransferase 29 U/L (12-78); Albumin Level 3.5 gm/dL (3.4-5.0); Albumin/Globulin Ratio 1.2 (1.1-1.8); Alkaline Phosphatase 105 U/L (46-116); Anion Gap 11.3 mEq/L (5-15); Aspartate Amino Transferase 19 U/L (15-37); Bilirubin,Total 0.4 mg/dL (0.2-1.0); Blood Urea Nitrogen 12 mg/dL (7-18); Calcium 9.4 mg/dL (8.5-10.1); Carbon Dioxide 29 mmol/L (21.0-32.0); Chloride 105 mmol/L (98-107); Creatinine,Serum 0.71 mg/dL (0.55-1.02); Estimated Glomerular Filt Rate 84 ml/min (>60); GFR (African American) 101 ML/MIN (>60); Glucose 86 mg/dL (74-106); Potassium 4.3 mmoL/L (3.5-5.1); Sodium 141 mmol/L (136-145); Total Protein,Serum 6.5 gm/dL (6.4-8.2)
== END ==
PROVIDERS: PCP Family Medicine; Visit Provider Internal Medicine Rheumatology
DX: M06.9 Rheumatoid arthritis, unspecified (principal); Z79.899 Other long term (current) drug therapy
CPT/HCPCS: 36415; 80053; 85025

== ENCOUNTER → 2019-03-29 13:13 | Outpatient (CLI) | payer MEDICARE, MEDICAID, SELFPAY ==
--- NOTE | 2019-03-29 13:14 | CA_ITS ---
PROCEDURE: 2-D M-mode and color Doppler study INDICATIONS FOR THE TEST: Chest pain COPD Heart Murmur Tobacco Smoking Palpitations Fatigue Syncope Edema+ Hypertension+Diabetes Mellitus Rheumatic Fever SOB MARS+Obesity+Hyperlipidemia+ Family History HD Additional History PATIENT INFORMATION HEIGHT: 65 WEIGHT: 245 GENDER: Female B/P: 158/65 2-D/M-MODE INTERPRETATION: 2-D MEASUREMENTS OBSERVED VALUES IN CMS Right Ventricular Dimension (RVDd) 2.3 Interventricular Septum (Thickness)(IVsd) 0.8 Left Ventricular Internal Dimensions(LVIDd) 4.6 Left Ventricular Posterior Wall (Thickness)(LVPWd) 0.9 Aortic Root 2.9 Aortic Cusp Separation 2.0 Left Atrial Dimensions (LAD) 4.6 2D 1. Left atrium is mildly enlarged, left ventricle is normal size, mild concentric left ventricular hypertrophy, visually estimated ejection fraction 55% with no regional wall motion abnormality. 2. The right atrium and right ventricle are mildly enlarged with normal contractility. 3. The aortic valve is minimally thickened and fibrosed. 4. The mitral and tricuspid valve are grossly normal. 5. The pulmonic valve is poorly visualized. 6. No significant pericardial effusion noted. DOPPLER INTERROGATION: Doppler interrogation of the aortic, mitral and tricuspid valvular presence of mild mitral and tricuspid regurgitation, calculated right ventricular systolic pressure is 41 mmHg consistent with moderate pulmonary hypertension, grade 1 diastolic dysfunction seen with tissue Doppler evidence of raised left atrial pressure, inferior vena cava is normal size with normal inspiratory collapse. CONCLUSION: 1. Mild biatrial enlargement, normal left ventricular size, mild concentric left ventricular hypertrophy, visually estimated ejection fraction 55% with no regional wall motion abnormality, grade 1 diastolic dysfunction seen with tissue Doppler evidence of raised left atrial pressure. 2. Mildly enlarged right ventricle with normal contractility. 3. Mild mitral and tricuspid regurgitation, calculated right ventricular systolic pressure is 41 mmHg consistent with moderate pulmonary hypertension. Inferior vena cava is normal size with normal inspiratory collapse. 4. No significant pericardial effusion noted.
== END ==
PROVIDERS: PCP Family Medicine; Visit Provider Internal Medicine Cardiovascular Disease
DX: I10 Essential (primary) hypertension; I25.118 Atherosclerotic heart disease of native coronary artery with other forms of angina pectoris; I27.20 Pulmonary hypertension, unspecified; R60.9 Edema, unspecified; E78.49 Other hyperlipidemia
CPT/HCPCS: 93306

== ENCOUNTER 2019-05-13 11:00 | Outpatient (RCR) | payer MEDICARE, SELFPAY ==
--- NOTE | 2019-04-11 14:33 | HMH.PTOPEV ---
PT Outpatient Evaluation Rehab PT Outpatient Evaluation Start: 04/11/19 13:23 Freq: Status: Active Protocol: Document 04/11/19 13:23 PEGGY (Rec: 04/11/19 14:33 PEGGY [id number]) Electronically Signed By Desmond Brennan, PT 04/11/19 13:23 Outpatient Therapy Subjective History Subjective History Pt reports h/o chronic cervicogenic LOVING's and neck pain beginning ~1 yr ago. Pt reports 'injections from my neurologist were helping until about a month ago', but now reports LOVING's daily, and with increased intensity. Pt also reports increased pain/LOVING's with stress, and has had multiple life events recently which she believes has contributed to her s/s getting worse. Chief Complaint Pain,Stiff,Clicks Symptom Type Ache,Sharp,Dull,Stabbing, Burning Symptoms Relieved By Rest/Positioning,Ice Symptoms Aggravated By Physical Activity,Lifting Prior Functional Limitations Lifting,Housework,Desk Work/ Reading,Driving Current Functional Limitations Lifting,Housework,Desk Work/ Reading,Driving Symptom Description Constant but Variable Level of pain today (0-10) 8 Pain scale - at its best (0-10) 4 Pain scale - at its worst (0-10) 10 Cervical Eval Palpation Cervical Muscles R Cervical Paraspinal,L Cervical Paraspinal,R Suboccipital,L Suboccipital,R SCM,L SCM,R CT Junction,L CT Junction,R Upper Trapezius,L Upper Trapezius,R Thoracic Paraspinals,L Thoracic Paraspinals Cervical/Thoracic Palpation Findings Tenderness,Spasm,Trigger Point ,Muscle Guarding Posture Head/C-Spine Posture Sitting Position Flexed Head/C-Spine Posture Standing Position Flexed Flexibility Deficits Upper Trapezius Muscle Length (R) Moderate Tightness,(L) Moderate Tightness Levaetor Scapulae Muscle Length (R) Moderate Tightness,(L) Moderate Tightness Scalene Group Muscle Length (R) Moderate Tightness,(L) Moderate Tightness Sternocleidomastoid Muscle Length (R) Mild Tightness,(L) Mild Tightness Pectoralis Major Muscle Length (R) Mild Tightne
== END 2019-05-13 11:05 | disposition home or self-care (01) ==
LOC: PT 11:00
PROVIDERS: PCP Family Medicine; Visit Provider Nurse Practitioner Family
DX: G43.919 Migraine, unspecified, intractable, without status migrainosus (principal)
CPT/HCPCS: 97010; 97014; 97035; 97110; 97140; 97163; G0283

== ENCOUNTER → 2019-06-08 20:25 | Outpatient (CLI) | payer MEDICARE, MEDICAID, SELFPAY | PROVIDERS: PCP Family Medicine; Visit Provider Nurse Practitioner Family | DX: G47.33 Obstructive sleep apnea (adult) (pediatric) (principal); I10 Essential (primary) hypertension; R51 Headache; E66.9 Obesity, unspecified | CPT/HCPCS: 95810 ==

== ENCOUNTER → 2019-07-15 11:36 | Outpatient (CLI) | payer MEDICARE, MEDICAID, SELFPAY ==
[2019-07-15 12:19] LABS: Basophils % 0.3 % (0.1-2.0); Eosinophils # 0.1 K/mm3 (0.0-0.4); Eosinophils % 1.4 % (0.1-12.0); Hematocrit 39.9 % (37.0-47.0); Hemoglobin 12.6 g/dL (12.2-16.2); Lymphocytes # 1.2 K/mm3 (0.7-4.5); Lymphocytes % 20.3 % (10-50); Mean Corpuscular HGB Conc 31.6 g/dL (31.8-35.4); Mean Corpuscular Hemoglobin 32.9 pg (27.0-31.2); Mean Corpuscular Volume 104.3 fl (81-99); Mean Platelet Volume 7.9 fl (7.4-10.4); Monocytes # 0.5 K/mm3 (0.1-1.0); Monocytes % 7.5 % (1.7-9.3); Neutrophils # 4.3 K/mm3 (1.8-7.8); Neutrophils % 70.6 % (37.0-80.0); Platelet Count 251 K/mm3 (142-424); Red Blood Count 3.82 M/mm3 (4.20-5.40); Red Cell Distribution Width 13.9 % (11.5-17.5); White Blood Count 6.1 K/mm3 (4.8-10.8)
[2019-07-15 12:58] LABS: Alanine Aminotransferase 19 U/L (12-78); Albumin Level 3.4 gm/dL (3.4-5.0); Albumin/Globulin Ratio 1.1 (1.1-1.8); Alkaline Phosphatase 114 U/L (46-116); Anion Gap 12.3 mEq/L (5-15); Aspartate Amino Transferase 20 U/L (15-37); Bilirubin,Total 0.3 mg/dL (0.2-1.0); Blood Urea Nitrogen 15 mg/dL (7-18); Calcium 8.9 mg/dL (8.5-10.1); Carbon Dioxide 26 mmol/L (21.0-32.0); Chloride 104 mmol/L (98-107); Creatinine,Serum 0.77 mg/dL (0.55-1.02); Estimated Glomerular Filt Rate 76 ml/min (>60); GFR (African American) 92 ML/MIN (>60); Globulin 3.1 gm/dl (1.3-3.2); Glucose 84 mg/dL (74-106); Potassium 4.3 mmoL/L (3.5-5.1); Sodium 138 mmol/L (136-145); Total Protein,Serum 6.5 gm/dL (6.4-8.2)
== END ==
PROVIDERS: Visit Provider Internal Medicine Rheumatology
DX: D64.9 Anemia, unspecified (principal); M06.9 Rheumatoid arthritis, unspecified; M54.5 Low back pain; Z02.89 Encounter for other administrative examinations; Z79.899 Other long term (current) drug therapy
CPT/HCPCS: 36415; 80053; 85025

== ENCOUNTER → 2019-09-16 14:56 | Outpatient (CLI) | payer MEDICARE, MEDICAID, SELFPAY ==
[2019-09-16 15:21] LABS: Basophils % 0.4 % (0.1-2.0); Eosinophils # 0.1 K/mm3 (0.0-0.4); Eosinophils % 1.1 % (0.1-12.0); Hematocrit 41.6 % (37.0-47.0); Hemoglobin 12.9 g/dL (12.2-16.2); Lymphocytes % 25.5 % (10-50); Mean Corpuscular HGB Conc 30.9 g/dL (31.8-35.4); Mean Corpuscular Hemoglobin 31.8 pg (27.0-31.2); Mean Corpuscular Volume 103.1 fl (81-99); Mean Platelet Volume 7.8 fl (7.4-10.4); Monocytes # 0.4 K/mm3 (0.1-1.0); Monocytes % 5.2 % (1.7-9.3); Neutrophils # 5.2 K/mm3 (1.8-7.8); Neutrophils % 67.8 % (37.0-80.0); Platelet Count 315 K/mm3 (142-424); Red Blood Count 4.04 M/mm3 (4.20-5.40); Red Cell Distribution Width 15.2 % (11.5-17.5); White Blood Count 7.7 K/mm3 (4.8-10.8)
[2019-09-16 16:26] LABS: Alanine Aminotransferase 23 U/L (12-78); Albumin Level 3.8 gm/dL (3.4-5.0); Albumin/Globulin Ratio 1.3 (1.1-1.8); Alkaline Phosphatase 109 U/L (46-116); Anion Gap 13.1 mEq/L (5-15); Aspartate Amino Transferase 18 U/L (15-37); Bilirubin,Total 0.3 mg/dL (0.2-1.0); Blood Urea Nitrogen 16 mg/dL (7-18); Calcium 9.2 mg/dL (8.5-10.1); Carbon Dioxide 28 mmol/L (21.0-32.0); Chloride 103 mmol/L (98-107); Creatinine,Serum 0.79 mg/dL (0.55-1.02); Estimated Glomerular Filt Rate 74 ml/min (>60); GFR (African American) 89 ML/MIN (>60); Glucose 83 mg/dL (74-106); Potassium 4.1 mmoL/L (3.5-5.1); Sodium 140 mmol/L (136-145); Total Protein,Serum 6.8 gm/dL (6.4-8.2)
== END ==
PROVIDERS: Visit Provider Internal Medicine Rheumatology
DX: M06.9 Rheumatoid arthritis, unspecified (principal); Z79.899 Other long term (current) drug therapy
CPT/HCPCS: 36415; 80053; 85025

== ENCOUNTER 2019-10-06 11:00 | Outpatient (RCR) | payer MEDICARE, MEDICAID, SELFPAY ==
--- NOTE | 2019-09-08 14:25 | HMH.PTOPEV ---
PT Outpatient Evaluation Rehab PT Outpatient Evaluation Start: 09/08/19 13:33 Freq: Status: Active Protocol: Document 09/08/19 13:33 PEGGY (Rec: 09/08/19 14:24 PEGGY [id number]) Electronically Signed By Desmond Brennan, PT 09/08/19 13:33 Outpatient Therapy Subjective History Subjective History Pt reports h/o chronic neck pain/cervicogenic LOVING's for ~1 yr, with exacerbation over the lst 3 weeks. Pt reports cevicogenic LOVING freq. ~1/day ' at least', and referred pain into B UT mm, but no radicular s/s into B UE's. PMH: RA, OA Chief Complaint Pain,Stiff Symptom Type Ache,Throb,Dull Symptoms Relieved By Rest/Positioning,Ice Symptoms Aggravated By Physical Activity,Lifting Prior Functional Limitations Lifting,Housework Current Functional Limitations Lifting,Housework Symptom Description Constant but Variable Level of pain today (0-10) 5 Pain scale - at its best (0-10) 5 Pain scale - at its worst (0-10) 7 Cervical Eval Palpation Cervical Muscles R Suboccipital,L Suboccipital, R CT Junction,L CT Junction,R Upper Trapezius,L Upper Trapezius,R Thoracic Paraspinals,L Thoracic Paraspinals Cervical/Thoracic Palpation Findings Tenderness,Trigger Point Posture Head/C-Spine Posture Sitting Position Flexed Head/C-Spine Posture Standing Position Flexed Flexibility Deficits Upper Trapezius Muscle Length (R) Moderate Tightness,(L) Moderate Tightness Levaetor Scapulae Muscle Length (R) Moderate Tightness,(L) Moderate Tightness Scalene Group Muscle Length (R) Moderate Tightness,(L) Moderate Tightness Pectoralis Major Muscle Length (R) Moderate Tightness,(L) Moderate Tightness Pectoralis Minor Muscle Length (R) Moderate Tightness,(L) Moderate Tightness Passive Joint Mobility Cervical PIVM Dec: R OA L OA R AA L AA R C2/3 L C2/3 R C3/4 L C3/4 R C4/5 L C4/5 R C5/6 L C5/6
== END 2019-10-06 11:05 | disposition home or self-care (01) ==
LOC: PT 11:00
PROVIDERS: PCP Family Medicine; Visit Provider Specialist
DX: G43.709 Chronic migraine without aura, not intractable, without status migrainosus (principal)
CPT/HCPCS: 20560; 97010; 97014; 97035; 97110; 97140; 97163; G0283

== ENCOUNTER 2019-10-14 13:00 | Outpatient (RCR) | payer MEDICARE, MEDICAID, SELFPAY ==
--- NOTE | 2019-09-27 10:42 | HMH.PTOPWND ---
Rehab Outpt Wound Evaluation Rehab OP Wound Evaluation Start: 09/27/19 10:14 Freq: Status: Active Protocol: Document 09/27/19 10:36 GERBER (Rec: 09/27/19 10:42 PHORELOISA [id number]) Electronically Signed By Jonathan Hammer, PT 09/27/19 10:36 Subjective/History History History Pt is 64 yowf who presents with c/o increased LE edema, worse on the L, x 3-4 yrs. She reports increased tenderness and intermittent pain in the L lower leg. She states, I can 't stand the blanket to lay on my L leg. She has hx of HTN, HL, anxiety, depression, asthma, hepatitis, migraine, RA, L ARI, B TKA, CCY, gastric sleeve, chronic cervical pain . Subjective Subjective She reports pain 7/10 at worst in the L lower leg. Lymphedema Eval Classification of Lymphedema Secondary Lymphedema Yes Stemmer's sign Stemmer's Sign no Stage of Lymphedema Lymphedema stages Stage II (Pitting edema, increased fibrosis w/ decreased pitting) Skin Changes Dry Skin Yes Skin Folds Yes Other Changes Yes Pain Scale Pain Scale (0-10) 7 Affected Extremities Areas Affected by Lymphedema/Edema Right Lower Extremity,Left Lower Extremity Manual Lymphatic Drainage Treatment Area MLD Treatment Area Right Lower Extremity,Left Lower Extremity Wound Problems/Impairments Impairments Problems/Impairmments Palpation Tenderness,Impaired Recreational Activities, Increased Edema,Lymphedema Present,Subjective C/O Pain, Impaired Self Care/Self Management Prognosis Rehab Potential Good Clinical Impression Consistent with Diagnosis Yes Short Term Goals Number of Weeks 4 Decreased Palpation Tenderness Yes: to min Decrease Subjective C/O Pain Yes: 5/10 Patient to Understand Lymphedema Yes Treatment and Exercises Decrease Girth Measurments by (cm) Yes: by 10 cm 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
== END 2019-10-14 13:05 | disposition home or self-care (01) ==
LOC: PT 13:00
PROVIDERS: PCP Family Medicine; Visit Provider Family Medicine
DX: M79.89 Other specified soft tissue disorders (principal); I89.0 Lymphedema, not elsewhere classified
CPT/HCPCS: 97140; 97162; 97760

== ENCOUNTER → 2020-01-13 12:17 | Outpatient (CLI) | payer MEDICARE, MEDICAID, SELFPAY ==
[2020-01-13 12:52] LABS: Basophils % 0.3 % (0.1-2.0); Eosinophils # 0.1 K/mm3 (0.0-0.4); Eosinophils % 0.7 % (0.1-12.0); Hemoglobin 12.4 g/dL (12.2-16.2); Lymphocytes # 1.2 K/mm3 (0.7-4.5); Lymphocytes % 17.3 % (10-50); Mean Corpuscular HGB Conc 33.4 g/dL (31.8-35.4); Mean Corpuscular Hemoglobin 32.5 pg (27.0-31.2); Mean Corpuscular Volume 97.2 fl (81-99); Mean Platelet Volume 8.1 fl (7.4-10.4); Monocytes # 0.4 K/mm3 (0.1-1.0); Monocytes % 5.2 % (1.7-9.3); Neutrophils # 5.4 K/mm3 (1.8-7.8); Neutrophils % 76.4 % (37.0-80.0); Platelet Count 295 K/mm3 (142-424); Red Blood Count 3.81 M/mm3 (4.20-5.40); Red Cell Distribution Width 13.7 % (11.5-17.5); White Blood Count 7.1 K/mm3 (4.8-10.8)
[2020-01-13 13:32] LABS: Alanine Aminotransferase 14 U/L (12-78); Alkaline Phosphatase 111 U/L (38-126); Aspartate Amino Transferase 24 U/L (14-36); Bilirubin,Direct 0.1 mg/dl (0.0-0.4); Bilirubin,Indirect 0.1 mg/dL (0.0-0.9); Bilirubin,Total 0.2 mg/dl (0.2-1.3); Bilirubin,Unconjugated 0.2 mg/dL (0.0-1.1); Total Protein,Serum 6.8 g/dl (6.3-8.2)
[2020-01-13 13:33] LABS: Alanine Aminotransferase 14 U/L (12-78); Albumin Level 4.1 g/dl (3.5-5.0); Albumin/Globulin Ratio 1.5 (1.1-1.8); Alkaline Phosphatase 111 U/L (38-126); Aspartate Amino Transferase 25 U/L (14-36); Bilirubin,Total 0.2 mg/dl (0.2-1.3); Blood Urea Nitrogen 17 mg/dl (7-17); Calcium 9.5 mg/dl (8.4-10.2); Carbon Dioxide 27 mmol/L (22.0-30.0); Chloride 104 mmol/L (98-107); Estimated Glomerular Filt Rate 85 ml/min (>60); GFR (African American) 103 ML/MIN (>60); Globulin 2.7 g/dL (1.3-3.2); Glucose 104 mg/dl (74-100); Sodium 134 mmol/L (136-145); Total Protein,Serum 6.8 g/dl (6.3-8.2)
[2020-01-13 13:37] LABS: Triglycerides 60 mg/dl (30-150); VLDL Cholesterol 12 mg/dL (0-40)
[2020-01-13 13:39] LABS: Cholesterol 175 mg/dl (140-200)
[2020-01-13 13:43] LABS: Direct LDL Cholesterol 59.85 mg/dL (100-129)
[2020-01-13 13:46] LABS: Chol/HDL Ratio 1.3 (1-3.5); HDL Cholesterol 131 mg/dl (40-60)
== END ==
PROVIDERS: Nurse Practitioner Family; PCP Family Medicine; Visit Provider Internal Medicine Cardiovascular Disease
DX: E78.5 Hyperlipidemia, unspecified (principal); I10 Essential (primary) hypertension; I25.10 Atherosclerotic heart disease of native coronary artery without angina pectoris; I27.20 Pulmonary hypertension, unspecified; M06.9 Rheumatoid arthritis, unspecified; Z79.899 Other long term (current) drug therapy
CPT/HCPCS: 80053; 80061; 80076; 85025

== ENCOUNTER → 2020-02-07 15:23 | Outpatient (POV) | payer MEDICARE, MEDICAID, SELFPAY | PROVIDERS: PCP Family Medicine; Visit Provider Physician Assistant | DX: Z00.00 Encounter for general adult medical examination without abnormal findings (principal) ==

== ENCOUNTER 2020-02-10 10:00 | Outpatient (RCR) | payer MEDICARE, MEDICAID, SELFPAY ==
--- NOTE | 2020-02-01 13:40 | HMH.RHREAS ---
Rehab Reassessment Rehab OP Re-assessment Start: 02/01/20 13:36 Freq: Status: Active Protocol: Document 02/01/20 13:37 GERBER (Rec: 02/01/20 13:40 GERBER [id number]) Electronically Signed By Jonathan Hammer, PT 02/01/20 13:37 Rehab Re-assessment Subjective Subjective Pt reports she is feeling better overall, beginning to do water aerobics in [place]. Objective Objective Notes B LE less tender to palpation, especially in the lower legs. Less fibrotic edema quality B. Assessment Progress Assessment Progressing as Expected Assessment Notes Pt with improving c/o discomfort and less edema noted in B LE overall. Patient goals met ST,2,3,4,5,6,7,8,9,10 Goals Not Met LT,2,3,4,5 Revised Goals none Plan Plan Continue per initial POC. Frequency of Therapy 2 x/wk Duration of therapy 8 wks Time and Billing Re-Eval Time 15 Re-Eval Billing Units 1 PHYSICIAN CERTIFICATION: I certify the specified therapy services for Vashti Ulrich are required, authorized, and reviewed every 30 days.
== END 2020-02-10 10:05 | disposition home or self-care (01) ==
LOC: PT 10:00
PROVIDERS: PCP Family Medicine; Visit Provider Podiatrist
DX: R60.0 Localized edema (principal); I89.0 Lymphedema, not elsewhere classified
CPT/HCPCS: 97110; 97113; 97140; 97161; 97164; 97760

== ENCOUNTER → 2020-03-19 12:06 | Outpatient (CLI) | payer MEDICARE, MEDICAID, SELFPAY ==
--- NOTE | 2020-03-19 17:46 | XR_ITS ---
PROCEDURE: XR FOOT WT BEARING LT 3V CLINICAL INDICATION: pain left foot pain COMPARISON: No exams were available for comparison FINDINGS: There is hallux valgus with osteoarthritis at the 1st MTP joint as well as the talonavicular and navicular cuneiform and calcaneocuboid joint with pes planus. Osteoarthritis 1st tarsometatarsal joint. No acute fracture or bony erosive change. IMPRESSION: Osteoarthritis with pes planus and hallux valgus Dictated by: Richard Moore MD 03/19/2020 19:02 Electronically signed by Richard Moore MD in [place] 03/19/2020 19:02
--- NOTE | 2020-03-19 17:46 | XR_ITS ---
PROCEDURE: XR ANKLE WT BEARING LT MIN 3V CLINICAL INDICATION: pain COMPARISON: [id number] XR ankle wt bearing LT min 3V from 08/02/2018 FINDINGS: There are mild osteoarthritic changes of the ankle. No fracture or dislocation. There is some heterogeneous subcortical lucency at the talar dome medially. This is nonspecific and could be related to subarticular cystic changes or osteochondral defect. MRI may provide further evaluation if clinically desired. IMPRESSION: Osteoarthritic changes. Heterogeneous subchondral lucency talar dome. osteochondral defect is considered and CT or MRI may provide further evaluation Dictated by: Richard Moore MD 03/19/2020 19:05 Electronically signed by Richard Moore MD in [place] 03/19/2020 19:05
--- NOTE | 2020-03-19 17:46 | XR_ITS ---
PROCEDURE: XR ANKLE WT BEARING RT MIN 3V CLINICAL INDICATION: pain COMPARISON: [id number] XR ankle wt bearing RT min 3V from 08/02/2018 FINDINGS: No fracture or dislocation. No lytic or blastic change. There is normal mineralization. The joint spaces are well-preserved. No significant degenerative/arthritic changes. No erosive changes evident. Other findings:None. IMPRESSION: No acute findings. Dictated by: Richard Moore MD 03/19/2020 19:07 Electronically signed by Richard Moore MD in [place] 03/19/2020 19:07
--- NOTE | 2020-03-19 17:53 | XR_ITS ---
PROCEDURE: XR FOOT WT BEARING RT 3V CLINICAL INDICATION: PAIN COMPARISON: No exams were available for comparison FINDINGS: There are osteoarthritic changes involving the 1st metatarsophalangeal joint. Moderate osteoarthritic changes are present at the 1st tarsal metatarsal joint the and at the other tarsometatarsal joints as well as the medial cuboid joint talonavicular joint and navicular cuneiform joint with pes planus the. Hammertoe deformity is present at the 2nd toe. There is a prominent os trigonum. No acute fracture or dislocation. IMPRESSION: Osteoarthritis with pes planus Dictated by: Richard Moore MD 03/19/2020 19:00 Electronically signed by Richard Moore MD in [place] 03/19/2020 19:00
== END ==
PROVIDERS: PCP Family Medicine; Visit Provider Podiatrist
DX: M19.071 Primary osteoarthritis, right ankle and foot (principal); M19.072 Primary osteoarthritis, left ankle and foot
CPT/HCPCS: 73610; 73630

== ENCOUNTER → 2020-04-06 12:51 | Outpatient (CLI) | payer MEDICARE, MEDICAID, SELFPAY ==
--- NOTE | 2020-04-06 12:51 | MR_ITS ---
PROCEDURE: MR ANKLE RT WO/W CON CLINICAL INDICATION: pain, soft tissue mass lateral ankle Pt states knot lateral side of ankle. [id number]. Pain worse when on feet for long periods. COMPARISON: CR XR ANKLE WT BEARING RT MIN 3V from 03/19/2020 TECHNIQUE: Routine multiplanar multi echo sequences are performed without gadolinium enhancement. FINDINGS: No soft tissue mass apparent. There is some mild subcutaneous edema along the lateral aspect the ankle and foot.. The tibiofibular ligaments appear intact. There is thinning of the ATFL and the PT FL, and deltoid ligament which could be due to prior injury/sprain. The peroneal tendons, posterior tibialis tendon, flexor hallucis longus flexor digitorum longus, and Achilles tendons appear intact. There are numerous subchondral/subarticular small areas increased T2 and decreased T1 signal involving every tarsal bone consistent with subchondral cystic changes. There is diffuse osteoarthritic change throughout the foot. Subarticular areas of increased T2 signal also involves the talar dome and may be related to developing subarticular cystic changes or osteo necrosis. No obvious fracture or dislocation. There is pes planus. IMPRESSION: 1. No obvious soft tissue mass. 2. Thinning of the ATFL, PT FL, and deltoid ligaments suggesting old injuries or ligamentous sprains 3. The posterior tibialis tendon appears intact. There is pes planus. 4. Diffuse osteoarthritic changes of the foot with scattered subarticular cystic changes including changes of the talar dome which could be due to subarticular cyst or osteonecrosis. Dictated by: Richard Moore MD 04/07/2020 10:44 Richard Moore MD in [place] 04/07/2020 10:44
[2020-04-06 13:28] LABS: Basophils % 0.2 % (0.1-2.0); Eosinophils # 0.1 K/mm3 (0.0-0.4); Eosinophils % 1.9 % (0.1-12.0); Hematocrit 34.8 % (37.0-47.0); Hemoglobin 11.4 g/dL (12.2-16.2); Lymphocytes # 0.8 K/mm3 (0.7-4.5); Lymphocytes % 11.7 % (10-50); Mean Corpuscular HGB Conc 32.7 g/dL (31.8-35.4); Mean Corpuscular Hemoglobin 31.6 pg (27.0-31.2); Mean Corpuscular Volume 96.8 fl (81-99); Mean Platelet Volume 7.5 fl (7.4-10.4); Monocytes # 0.4 K/mm3 (0.1-1.0); Monocytes % 5.6 % (1.7-9.3); Neutrophils # 5.8 K/mm3 (1.8-7.8); Neutrophils % 80.6 % (37.0-80.0); Platelet Count 287 K/mm3 (142-424); Red Cell Distribution Width 14.9 % (11.5-17.5); White Blood Count 7.2 K/mm3 (4.8-10.8)
[2020-04-06 13:30] LABS: Chloride 105 mmol/L (98-107)
[2020-04-06 13:31] LABS: Potassium 3.9 mmoL/L (3.5-5.1); Sodium 140 mmol/L (136-145)
[2020-04-06 13:33] LABS: Alanine Aminotransferase 18 U/L (12-78); Albumin Level 3.6 g/dl (3.5-5.0); Albumin/Globulin Ratio 1.2 (1.1-1.8); Alkaline Phosphatase 90 U/L (38-126); Anion Gap 9.9 mEq/L (5-15); Aspartate Amino Transferase 30 U/L (14-36); Bilirubin,Total 0.3 mg/dl (0.2-1.3); Blood Urea Nitrogen 20 mg/dl (7-17); Carbon Dioxide 29 mmol/L (22.0-30.0); Estimated Glomerular Filt Rate 45 ml/min (>60); GFR (African American) 55 ML/MIN (>60); Total Protein,Serum 6.6 g/dl (6.3-8.2)
[2020-04-06 13:34] LABS: Calcium 9.8 mg/dl (8.4-10.2); Glucose 82 mg/dl (74-100)
[2020-04-06 15:25] LABS: Hemoglobin A1C 5.5 % (4.0-6.0)
[2020-04-08 12:20] LABS: Vitamin B12 402 pg/mL (232-1245)
== END ==
PROVIDERS: Nurse Practitioner Family; Nurse Practitioner Psychiatric/Mental Health; PCP Family Medicine; Visit Provider Podiatrist
DX: M76.821 Posterior tibial tendinitis, right leg (principal); M76.822 Posterior tibial tendinitis, left leg; Z79.899 Other long term (current) drug therapy; Z00.00 Encounter for general adult medical examination without abnormal findings; R60.9 Edema, unspecified
CPT/HCPCS: 36415; 73723; 80053; 82607; 83036; 84443; 85025; A9576

== ENCOUNTER → 2020-04-13 13:26 | Outpatient (CLI) | payer MEDICARE, MEDICAID, SELFPAY ==
--- NOTE | 2020-04-13 13:26 | MR_ITS ---
PROCEDURE: MR FOOT RT WO/W CON CLINICAL INDICATION: pain Pt states knot lateral side of ankle. [id number]. Pain worse when on feet for long periods. 22ml prohance given. Bun: 20 cre: 1.2 gfr: 45, 17ml prohance given. Lot: [id number] exp: Jul 2022. 5ml lot: [id number] exp: Jan 2022 prior x-ray 03-19-20. PRIOR MRI 04-06-20 COMPARISON: CR XR FOOT WT BEARING LT 3V from 03/19/2020 MR MR ANKLE RT WO/W CON from 04/06/2020 TECHNIQUE: Routine multiplanar multi echo sequences are performed without gadolinium enhancement. FINDINGS: Please see recent MRI ankle 04/06/2020 for detailed description the ankle and hindfoot ligaments and tendons. Osteoarthritic changes are present involving tarsal bones with scattered subarticular cystic changes. No soft tissue mass is evident. There are hypertrophic changes along the calcaneocuboid junction and at the cuboid/5th metatarsal joint laterally which could account for palpable abnormality. Increased T2 signal is present at these areas of bony spurring consistent with subarticular cystic change. There is osteoarthritis of the 1st MTP joint. There is pes planus IMPRESSION: Diffuse osteoarthritic changes of the foot with subarticular cystic changes and bony hypertrophy. Specifically, there is osteophytes at the lateral aspect of the calcaneocuboid joint and at the lateral aspect of the cuboid/5th meta tarsal joint either 1 which could account for a palpable abnormality Pes planus. Please see MRI ankle report for tendon and ligament description Dictated by: Richard Moore MD 04/15/2020 08:23 Richard Moore MD in [place] 04/15/2020 08:23
== END ==
PROVIDERS: PCP Family Medicine; Visit Provider Podiatrist
DX: M76.821 Posterior tibial tendinitis, right leg (principal); M76.822 Posterior tibial tendinitis, left leg
CPT/HCPCS: 73720; A9576

== ENCOUNTER → 2020-05-05 11:38 | Outpatient (CLI) | payer MEDICARE, MEDICAID, SELFPAY ==
--- NOTE | 2020-05-05 11:46 | XR_ITS ---
PROCEDURE: XR FOOT LT MIN 3V Referring Doctor: Jeronimo Guadarrama Patient Age:65Y CLINICAL INDICATION: LEFT FOOT PAIN Left lateral foot pain COMPARISON: CR [id number] XR foot wt bearing RT 3V from 08/02/2018 CR [id number] XR foot wt bearing LT 3V from 08/02/2018 CR XR FOOT WT BEARING RT 3V from 03/19/2020 CR XR FOOT WT BEARING LT 3V from 03/19/2020 FINDINGS: Left foot 3 view: AP lateral and oblique nonweightbearing Today's studies are compared to previous exam most recent March 19, 2020. Notable hallux valgus again observed. Osteoarthritic changes tarsals, with most pronounced degenerative arthritic changes at 1st MTP joint, followed by the 1st tarsal-metatarsal joint. Also arthritic changes at the talar-navicular joint. Hypertrophic changes spurring and posterior buttressing seen at these joints. Less evident degenerative changes are seen at the navicular-cuneiform joint and calcaneal-cuboid joint, and less evident degenerative changes other tarsal articulations. There are subchondral cystic changes most evident about the more narrowed joint spaces also reflecting the degenerative arthritis osteoarthritic process Plantar calcaneal spur 8 mm length Bones are well mineralized. Today's nonweightbearing lateral view does reveal pes planus, along with flexion deformity at the 2nd-5th toes. No fracture or dislocation. No lytic or blastic change. Adequate mineralization.. No erosive changes. IMPRESSION: No acute findings.. No fracture nor subluxation. No significant new findings Osteoarthritic changes throughout foot as discussed in text, with no appreciable change since prior comparison studies Hallux valgus deformity again noted. Dictated by: Scot Putnam MD 05/05/2020 14:12 Scot Putnam MD in [place] 05/05/2020 14:12
== END ==
PROVIDERS: PCP Family Medicine; Visit Provider Family Medicine
DX: M79.672 Pain in left foot (principal)
CPT/HCPCS: 73630

== ENCOUNTER → 2020-05-11 16:21 | Outpatient (CLI) | payer MEDICARE, MEDICAID, SELFPAY ==
--- NOTE | 2020-05-11 16:27 | MM_ITS ---
PROCEDURE: MM DIG SCREENING MAMM BI W/CAD Referring Doctor: Jeronimo Guadarrama Patient Age:65Y CLINICAL INDICATION: SCREENING 65-year-old no hormones no complaints noncontributory family history COMPARISON: MG DMSB DIG MAMM-SCREEN IVY from 09/14/2015 MG DMSB DIG MAMM-SCREEN IVY W/CAD from 11/27/2016 MG SCBI MM Dig screening mamm BI w/CAD from 11/23/2017 MG DIG MAMM-SCREEN IVY from 03/14/2019 TECHNIQUE: Standard CC and MLO images were obtained. R2 CAD reviewed. Bilateral digital breast tomosynthesis included. Additional nipple profile CC views bilaterally as well as an additional left MLO nipple profile image FINDINGS: Low-density breast with generalized fatty replacement. Mammography is most sensitive and optimal in breast of this lower density. Progressive fatty change since 2016 prior mammograms with only scant residual fibroglandular elements.. No dominant or suspicious mass in either breast. No new areas of significant concern. Bilateral follow-up 1 year recommended IMPRESSION: . Stable bilateral mammogram. No areas of concern. Diffuse fatty replacement/low-density breast. Bilateral follow-up 1 year BI-RAD Category: 1 Negative FOLLOW-UP: 1YR 1 Year Follow-up (A letter has been sent to the patient regarding results of the study.) Dictated by: Scot Putnam MD 05/14/2020 09:57 Scot Putnam MD in [place] 05/14/2020 09:57
== END ==
PROVIDERS: PCP Family Medicine; Visit Provider Family Medicine
DX: Z12.31 Encounter for screening mammogram for malignant neoplasm of breast (principal)
CPT/HCPCS: 77063; 77067

== ENCOUNTER → 2020-06-01 14:47 | Outpatient (CLI) | payer MEDICARE, MEDICAID, SELFPAY ==
[2020-06-01 15:32] LABS: Basophils % 0.3 % (0.1-2.0); Eosinophils # 0.1 K/mm3 (0.0-0.4); Eosinophils % 1.2 % (0.1-12.0); Hematocrit 34.6 % (37.0-47.0); Hemoglobin 10.5 g/dL (12.2-16.2); Lymphocytes # 1.4 K/mm3 (0.7-4.5); Lymphocytes % 22.3 % (10-50); Mean Corpuscular HGB Conc 30.4 g/dL (31.8-35.4); Mean Corpuscular Volume 95.3 fl (81-99); Mean Platelet Volume 7.1 fl (7.4-10.4); Monocytes # 0.3 K/mm3 (0.1-1.0); Monocytes % 5.2 % (1.7-9.3); Neutrophils # 4.6 K/mm3 (1.8-7.8); Neutrophils % 71.1 % (37.0-80.0); Platelet Count 338 K/mm3 (142-424); Red Blood Count 3.63 M/mm3 (4.20-5.40); Red Cell Distribution Width 14.5 % (11.5-17.5); White Blood Count 6.4 K/mm3 (4.8-10.8)
[2020-06-01 16:08] LABS: Chloride 105 mmol/L (98-107); Sodium 139 mmol/L (136-145)
[2020-06-01 16:10] LABS: Alanine Aminotransferase 18 U/L (12-78); Aspartate Amino Transferase 28 U/L (14-36); Blood Urea Nitrogen 17 mg/dl (7-17); Estimated Glomerular Filt Rate 63 ml/min (>60); GFR (African American) 77 ML/MIN (>60)
[2020-06-01 16:11] LABS: Albumin Level 3.8 g/dl (3.5-5.0); Albumin/Globulin Ratio 1.5 (1.1-1.8); Alkaline Phosphatase 94 U/L (38-126); Bilirubin,Total 0.3 mg/dl (0.2-1.3); Calcium 9.5 mg/dl (8.4-10.2); Carbon Dioxide 29 mmol/L (22.0-30.0); Globulin 2.6 g/dL (1.3-3.2); Glucose 106 mg/dl (74-100); Total Protein,Serum 6.4 g/dl (6.3-8.2)
== END ==
PROVIDERS: Visit Provider Internal Medicine Rheumatology
DX: M06.9 Rheumatoid arthritis, unspecified (principal); Z79.899 Other long term (current) drug therapy
CPT/HCPCS: 36415; 80053; 85025

== ENCOUNTER → 2020-06-07 08:41 | Outpatient (CLI) | payer MEDICARE, MEDICAID, SELFPAY ==
--- NOTE | 2020-06-07 08:41 | MR_ITS ---
PROCEDURE: MR FOOT LT WO/W CON CLINICAL INDICATION: STM, Ankle impingement LATERAL SIDED ANKLE PAIN. PAIN XYRS. PAIN WHEN FLEXION. 22ML PROHANCE GIVEN. 17ML LOT:[id number] EXP: AUG 2022 5ML LOT:[id number] EXP: JAN 2022 PRIOR X-RAY 03-19-20 COMPARISON: MR MR ANKLE LT WO/W CON from 06/07/2020 TECHNIQUE: Routine multiplanar multi echo sequences are performed without gadolinium enhancement. FINDINGS: Please see MRI of the ankle for ankle description findings. There is a prominent posterior talar process. The flexor hallucis longus tendon however has an unremarkable appearance. There is a small amount of fluid at the talocalcaneal region posteriorly and at the anterior aspect of the ankle joint. Osteoarthritic changes are present involving the tarsal bones and metatarsal tarsal joints. There is hallux valgus with osteoarthritic change of the 1st MTP joint. No fracture or dislocation is evident. No enhancing lesions are apparent. Subcortical cystic changes are present at the base of the metatarsals 1 2 and 3. No fracture or dislocation. 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 Osteoarthritic changes are present at the talonavicular joint and calcaneocuboid joint as well as the anterior subtalar joint and the navicular cuneiform joint with pes planus. IMPRESSION: 1. Please see ankle report for ligament description and ankle findings. 2. Prominent posterior talar process with a small amount fluid around the prominent posterior talar process. The flexor hallucis longus tendon however has an unremarkable appearance. 3. Osteoarthritic change. 4. Hallux valgus with osteoarthritis of the 1st MTP joint. Dictated by: Richard Moore MD 06/11/2020 07:44 Richard Moore MD in [place] 06/11/2020 07:44
--- NOTE | 2020-06-07 08:41 | MR_ITS ---
PROCEDURE: MR ANKLE LT WO/W CON CLINICAL INDICATION: STM, Ankle impingement LATERAL SIDED ANKLE PAIN. PAIN XYRS. PAIN WHEN FLEXION. COMPARISON: CR XR FOOT LT MIN 3V from 05/05/2020 TECHNIQUE: Routine multiplanar multi echo sequences are performed without gadolinium enhancement. FINDINGS: There is mild diffuse subcutaneous soft tissue swelling. There is diffuse increased T2 signal involving the distal aspect of the tibia consistent with bone marrow edema. There is decreased T1 and increased T2 signal in the subcortical region of the talus medially measuring 7 mm. The tibiofibular ligaments ATFL and PT FL appear intact. The peroneal tendons, Achilles tendon, flexor digitorum longus and flexor hallucis longus tendons appear intact. The posterior tibialis tendon cannot be followed in its entirety at the level of the tip of the medial malleolus with some heterogeneous signal intensity at this region consistent with a tear of the posterior tibialis. This tear could be complete or partial tear tendinopathy/tendinosis is also included in the differential diagnosis. There is a prominent posterior talar process. Osteoarthritic changes are present at the talonavicular joint and the anterior subtalar joint as well as the calcaneocuboid joint and navicular cuneiform joint. IMPRESSION: 1. Suspected tear of the posterior tibialis tendon. Differential diagnosis includes tendinopathy/tendinosis. Please correlate with clinical parameters. 2. Osteoarthritic changes. 3. 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 4. Diffuse bone marrow edema of the distal tibia 5. Diffuse subcutaneous edema Dictated by: Richard Moore MD 06/11/2020 07:26 Richard Moore MD in [place] 06/11/2020 07:26
== END ==
PROVIDERS: PCP Family Medicine; Visit Provider Podiatrist
DX: M25.872 Other specified joint disorders, left ankle and foot (principal); M79.89 Other specified soft tissue disorders
CPT/HCPCS: 73720; 73723; A9576

== ENCOUNTER → 2020-09-10 10:48 | Outpatient (CLI) | payer MEDICARE, MEDICAID, SELFPAY ==
[2020-09-10 12:06] LABS: Chol/HDL Ratio 1.7 (1-3.5); Cholesterol 181 mg/dl (140-200); HDL Cholesterol 108 mg/dl (40-60); Triglycerides 67 mg/dl (30-150); VLDL Cholesterol 13 mg/dL (0-40)
[2020-09-10 12:33] LABS: Direct LDL Cholesterol 48.23 mg/dL (100-129)
== END ==
PROVIDERS: Visit Provider Internal Medicine Rheumatology
DX: M06.9 Rheumatoid arthritis, unspecified (principal); M85.80 Other specified disorders of bone density and structure, unspecified site; N28.9 Disorder of kidney and ureter, unspecified; D64.9 Anemia, unspecified; Z79.899 Other long term (current) drug therapy
CPT/HCPCS: 36415; 80061

== ENCOUNTER → 2020-11-12 12:14 | Outpatient (CLI) | payer MEDICARE, MEDICAID, SELFPAY ==
[2020-11-12 12:49] LABS: Basophils % 0.2 % (0.1-2.0); Eosinophils # 0.1 K/mm3 (0.0-0.4); Eosinophils % 0.9 % (0.1-12.0); Hematocrit 29.3 % (37.0-47.0); Hemoglobin 8.7 g/dL (12.2-16.2); Lymphocytes # 1.1 K/mm3 (0.7-4.5); Lymphocytes % 15.1 % (10-50); Mean Corpuscular HGB Conc 29.5 g/dL (31.8-35.4); Mean Corpuscular Hemoglobin 23.5 pg (27.0-31.2); Mean Corpuscular Volume 79.6 fl (81-99); Mean Platelet Volume 8.1 fl (7.4-10.4); Monocytes # 0.5 K/mm3 (0.1-1.0); Monocytes % 6.5 % (1.7-9.3); Neutrophils # 5.6 K/mm3 (1.8-7.8); Neutrophils % 77.2 % (37.0-80.0); Platelet Count 364 K/mm3 (142-424); Red Blood Count 3.68 M/mm3 (4.20-5.40); Red Cell Distribution Width 15.9 % (11.5-17.5); White Blood Count 7.3 K/mm3 (4.8-10.8)
[2020-11-12 13:08] LABS: Chloride 106 mmol/L (98-107)
[2020-11-12 13:09] LABS: Potassium 4.1 mmoL/L (3.5-5.1); Sodium 140 mmol/L (136-145)
[2020-11-12 13:11] LABS: Alanine Aminotransferase 19 U/L (12-78); Aspartate Amino Transferase 33 U/L (14-36); Blood Urea Nitrogen 18 mg/dl (7-17); Estimated Glomerular Filt Rate 63 ml/min (>60); GFR (African American) 77 ML/MIN (>60)
[2020-11-12 13:12] LABS: Albumin/Globulin Ratio 1.6 (1.1-1.8); Alkaline Phosphatase 92 U/L (38-126); Anion Gap 9.1 mEq/L (5-15); Bilirubin,Total 0.4 mg/dl (0.2-1.3); Calcium 9.2 mg/dl (8.4-10.2); Carbon Dioxide 29 mmol/L (22.0-30.0); Globulin 2.5 g/dL (1.3-3.2); Glucose 88 mg/dl (74-100); Total Protein,Serum 6.5 g/dl (6.3-8.2)
[2020-11-13 11:12] LABS: Hep A Ab, IgM Negative (Negative); Hepatitis B Core Antibody IgM Negative (Negative); Hepatitis B Surface Antigen Negative (Negative)
[2020-11-13 13:40] LABS: Hepatitis C Antibody <0.1 s/co ratio (0.0-0.9)
[2020-11-16 14:00] LABS: QuantiFERON-TB Gold Plus Negative (Negative)
== END ==
PROVIDERS: Visit Provider Internal Medicine Rheumatology
DX: M06.9 Rheumatoid arthritis, unspecified (principal); D64.9 Anemia, unspecified; M85.80 Other specified disorders of bone density and structure, unspecified site; N28.9 Disorder of kidney and ureter, unspecified; F32.9 Major depressive disorder, single episode, unspecified; Z79.899 Other long term (current) drug therapy
CPT/HCPCS: 36415; 80053; 80074; 85025; 86480

== ENCOUNTER 2020-11-16 13:00 | Outpatient (RCR) | payer MEDICARE, MEDICAID, SELFPAY ==
--- NOTE | 2020-07-24 14:49 | HMH.PTOPWND ---
Rehab Outpt Wound Evaluation Rehab OP Wound Evaluation Start: 07/24/20 14:31 Freq: Status: Active Protocol: Document 07/24/20 14:33 GERBER (Rec: 07/24/20 14:49 PHORNE [id number]) Electronically Signed By Jonathan Hammer, PT 07/24/20 14:33 Subjective/History History History Pt is 65 yowf who presents with chronic edema of B LE, L worse than R. She reports she wears compression stockings on the R LE, but has difficulty wearing them on the L due to hammer toes and bunyon. She presents with 3+ pitting edema of the L lower leg. She reports mild/moderate pain in the L lower leg and foot intermittently. Subjective Subjective Pt reports pain 4/10 currently , 7/10 at worst. She has 2/4 TTP along the gaitor area of the L lower leg. Lymphedema Eval Classification of Lymphedema Secondary Lymphedema Yes Stemmer's sign Stemmer's Sign no Stage of Lymphedema Lymphedema stages Stage I (Pitting edema, reduces w/ elevation, no fibrosis) Skin Changes Dry Skin Yes Redness Yes Discoloration of Skin Yes Other Changes Yes Pain Scale Pain Scale (0-10) 7 Affected Extremities Areas Affected by Lymphedema/Edema Right Lower Extremity,Left Lower Extremity Manual Lymphatic Drainage Treatment Area MLD Treatment Area Right Lower Extremity,Left Lower Extremity Wound Problems/Impairments Impairments Problems/Impairmments Palpation Tenderness,Impaired Endurance,Impaired Walking, Impaired Standing,Increased Edema,Lymphedema Present, Subjective C/O Pain,Impaired Self Care/Self Management Prognosis Rehab Potential Good Clinical Impression Consistent with Diagnosis Yes Short Term Goals Number of Weeks 4 Decreased Palpation Tenderness Yes: 1/4 Decrease Edema Yes Decrease Subjective C/O Pain Yes: 3/10 Patient to Understand Lymphedema Yes Treatment and Exercises Hide And Skin Classer Goals Number of Weeks 8 Decreased Palpation Tenderness Yes: 0/4 Decrease Lymphedema Yes
--- NOTE | 2020-09-14 10:55 | HMH.RHREAS ---
Rehab Reassessment Rehab OP Re-assessment Start: 09/14/20 10:31 Freq: Status: Active Protocol: Document 09/14/20 10:32 GERBER (Rec: 09/14/20 10:55 GERBER [id number]) Electronically Signed By Jonathan Hammer, PT 09/14/20 10:32 Rehab Re-assessment Subjective Subjective Pt reports she feel good, but does think her R LE has some increased edema at times. Objective Objective Notes Edema: 2+ pitting edema noted to L LE from knee distally. Mildly fibrotic edema medial to the L knee. Assessment Progress Assessment Progressing as Expected Assessment Notes Continued palpation tenderness to L LE gaitor area. Edema remains pitting, but is improved. Patient goals met ST,2,3,4 Goals Not Met LT,2,3,4,5 Revised Goals none Plan Plan Continue per initial POC. Frequency of Therapy 2 x/wk Duration of therapy 8 wks Time and Billing Re-Eval Time 15 Re-Eval Billing Units 1 PHYSICIAN CERTIFICATION: I certify the specified therapy services for Vashti Ulrich are required, authorized, and reviewed every 30 days.
--- NOTE | 2020-10-15 11:22 | HMH.RHREAS ---
Rehab Reassessment Rehab OP Re-assessment Start: 09/14/20 10:31 Freq: Status: Active Protocol: Document 10/15/20 11:19 GERBER (Rec: 10/15/20 11:22 GERBER [id number]) Electronically Signed By Jonathan Hammer, PT 10/15/20 11:19 Rehab Re-assessment Subjective Subjective I really think I'm getting better. Less c/o pain in the L LE overall. Objective Objective Notes L Lower leg 1+ pitting edema remains. Much less fibrotic edema with less stiffness noted in the subcutaneous tissue with palpation. L Lower leg 1/4 tenderness to palpation today. Assessment Progress Assessment Progressing as Expected Assessment Notes Improving fibrotic edema with less pain and tenderness. Pitting continues, but is more controlled with compression. Patient goals met ST,2,3,4 Goals Not Met LT,2,3,4,5 Revised Goals none Plan Plan Continue per initial POC. Frequency of Therapy 2 x/wk Duration of therapy 8 wks Time and Billing Re-Eval Time 15 Re-Eval Billing Units 1 PHYSICIAN CERTIFICATION: I certify the specified therapy services for Vashti Ulrich are required, authorized, and reviewed every 30 days.
--- NOTE | 2020-11-16 13:45 | HMH.RHREAS ---
Rehab Reassessment Rehab OP Re-assessment Start: 09/14/20 10:31 Freq: Status: Active Protocol: Document 11/16/20 13:41 GERBER (Rec: 11/16/20 13:45 GERBER [id number]) Electronically Signed By Jonathan Hammer, PT 11/16/20 13:41 Rehab Re-assessment Subjective Subjective Pt reports she has been wearing her compression and going to water aerobics. She reports no new c/o in B LE. Objective Objective Notes Circumferential Measurements: R LE 322.6 cm total which is - 11.2 cm since IE. L LE 344.7 cm total which is -1.5 cm since IE. Assessment Progress Assessment Progressing as Expected Assessment Notes Pt appears to have progessed well with edema control and is independent with edema management at home at this time. Less tenderness to palpation and only 1+ pitting edema noted to L dorsal foot. Patient goals met ST,2,3,4 LT,2,3,4,5 Goals Not Met none Revised Goals none Plan Plan Will D/C pt at this time. Frequency of Therapy 0 Duration of therapy 0 Time and Billing Re-Eval Time 15 Re-Eval Billing Units 1 PHYSICIAN CERTIFICATION: I certify the specified therapy services for Vashti Ulrich are required, authorized, and reviewed every 30 days.
== END 2020-11-16 13:05 | disposition home or self-care (01) ==
LOC: PT 13:00
PROVIDERS: PCP Family Medicine; Visit Provider Podiatrist
DX: I89.0 Lymphedema, not elsewhere classified (principal)
CPT/HCPCS: 97113; 97140; 97162; 97164

== ENCOUNTER → 2020-11-28 15:46 | Outpatient (CLI) | payer MEDICARE, MEDICAID, SELFPAY ==
[2020-11-28 15:52] LABS: MANUAL DIFFERENTIAL MANUAL DIFFERENTIAL (MANUAL DIFF)
[2020-11-28 16:10] LABS: Basophils % 0.3 % (0.1-2.0); Eosinophils % 0.4 % (0.1-12.0); Hematocrit 28.5 % (37.0-47.0); Hemoglobin 8.4 g/dL (12.2-16.2); Lymphocytes # 1.5 K/mm3 (0.7-4.5); Lymphocytes % 15.9 % (10-50); Mean Corpuscular HGB Conc 29.5 g/dL (31.8-35.4); Mean Corpuscular Hemoglobin 22.9 pg (27.0-31.2); Mean Corpuscular Volume 77.5 fl (81-99); Mean Platelet Volume 8.1 fl (7.4-10.4); Monocytes # 0.6 K/mm3 (0.1-1.0); Monocytes % 6.2 % (1.7-9.3); Neutrophils # 7.1 K/mm3 (1.8-7.8); Neutrophils % 77.2 % (37.0-80.0); Platelet Count 381 K/mm3 (142-424); Red Blood Count 3.67 M/mm3 (4.20-5.40); Red Cell Distribution Width 16.5 % (11.5-17.5); White Blood Count 9.2 K/mm3 (4.8-10.8)
[2020-11-28 16:50] LABS: Lymphocytes % 16 % (10-50); Monocytes % 7 % (2-9); Neutrophils % 77 % (42-76); Platelet Estimate Normal; Total Cells Counted 100
[2020-11-28 16:51] LABS: Microcytosis 1+
== END ==
PROVIDERS: Visit Provider Family Medicine
DX: D64.9 Anemia, unspecified (principal); M06.9 Rheumatoid arthritis, unspecified; M85.80 Other specified disorders of bone density and structure, unspecified site; N28.9 Disorder of kidney and ureter, unspecified
CPT/HCPCS: 36415; 85007; 85014; 85018; 85048; 85049

== ENCOUNTER → 2020-12-03 13:41 | Outpatient (CLI) | payer MEDICARE, MEDICAID, SELFPAY | PROVIDERS: Visit Provider Family Medicine | DX: D64.9 Anemia, unspecified (principal) | CPT/HCPCS: 36415; 86850 ==

== ENCOUNTER 2020-12-04 09:16 | Outpatient (CLI) | payer MEDICARE, MEDICAID, SELFPAY ==
[2020-12-04] VITALS (20 sets, daily range): BP systolic 100–136; BP diastolic 52–79; PULSE 60–78; RESP 20; TEMP 36.1–36.9; O2SAT 95–100; BMI 41.1
[2020-12-04 15:19] LABS: Hemoglobin 9.3 g/dL (12.2-16.2)
== END 2020-12-04 15:10 | disposition home or self-care (01) ==
LOC: INF 09:16
PROVIDERS: Visit Provider Family Medicine
DX: D64.9 Anemia, unspecified (principal)
CPT/HCPCS: 36430; 85014; 85018; P9016

== ENCOUNTER → 2020-12-17 11:48 | Outpatient (CLI) | payer MEDICARE, MEDICAID, SELFPAY ==
[2020-12-17 15:07] LABS: Coronavirus 19 IgM Antibody Negative (Negative)
[2020-12-17 15:45] LABS: Coronavirus 19 IgG Antibody Positive (Negative)
== END ==
PROVIDERS: Visit Provider Surgery
DX: Z01.812 Encounter for preprocedural laboratory examination (principal); Z20.822 Contact with and (suspected) exposure to COVID-19; Z13.810 Encounter for screening for upper gastrointestinal disorder; Z12.11 Encounter for screening for malignant neoplasm of colon
CPT/HCPCS: 36415; 86328

== ENCOUNTER 2020-12-19 07:32 | Day surgery (SDC) | payer MEDICARE, MEDICAID, SELFPAY ==
[2020-12-17 14:41] VITALS: BMI 40.5
[2020-12-19 07:49] VITALS: BP 135/42; PULSE 70; RESP 16; TEMP 36.4; O2SAT 98
[2020-12-19 08:35] VITALS: O2SAT 98
[2020-12-19 09:50] VITALS: BP 133/77; PULSE 63; RESP 18; TEMP 36.4; O2SAT 93
--- NOTE | 2020-12-19 09:52 | HMH.SCOPE ---
- Procedure: Date: 12/19/20 Patient Date of :: 1955 Procedure Performed:: Esophagogastroduodenoscopy with biopsy Colonoscopy to terminal ileum with polypectomy using biopsy forceps and snare Indications:: Patient is a 65-year-old female referred by Dr. Guadarrama for EGD to work-up anemia. Patient underwent routine recent blood work which revealed iron deficiency anemia. She states that she was transfused 2 units. She denies any clinical bleeding. Of note, she had sleeve gastrectomy for obesity performed by Dr. Ilya Clark in 2014. She has had several colonoscopies in the past. She states that her last colonoscopy was with Dr. Clark in approximately 2015. She was actually scheduled for colonoscopy with Dr. Baker on October 28, 2019 but this was canceled due to Covid. She is anxious to proceed with endoscopic evaluation as she is planning on flying to [place] to visit her son in 2 weeks. Plan was for upper endoscopy and colonoscopy Performing Provider:: Jeovanny Posey MD Referring Provider:: Diego Guadarrama MD Sedation:: MAC sedation Procedure:: Patient was taken to endoscopy procedure room. She was positioned in lateral decubitus position. Adequate intravenous sedation was achieved with anesthesia titration of propofol. Attention was first turned to endoscopy. Olympus endoscope was inserted via the oropharynx and advanced through the esophagus. Gastroesophageal junction was encountered at approximately 35 cm from the incisors. Gastric sleeve remnant was cannulated and insufflated. There was some linear nonerosive gastritis within the residual antrum. Pylorus was traversed. Duodenal bulb and duodenal sweep appeared unremarkable. Once the endoscope was withdrawn into the gastric lumen antral mucosal biopsies obtained for CLOtest for H. pylori. A couple biopsies were obtained of the antrum to evaluate gastritis. Gastric sleeve remnant was desufflated and the endoscope was withdrawn. Next attention was turned to colonoscopy. Patient was repositioned. Variable stiffness Olympus colonoscope was inserted via the anus. With difficulty due to profound floppiness of the left colon ultimately the colonoscope was able to be advanced to the cecum. Colonic visualization was fair as there was undigested vegetable matter within the colon. However, irrigation and suctioning was performed to allow for decent visualization. Colonoscope was advanced a short distance into the terminal ileum which appeared grossly normal. Within the cecum there was a tiny diminutive polyp removed with cold biopsy forceps. Within the transverse colon there was a small to moderate possibly serrated adenoma removed with cold cutting snare. There was some minor oozing and clip was deployed for good hemostasis. Within the sigmoid colon there was a somewhat pedunculated adenomatous appearing polyp removed with cold cutting snare with residual polyp removed with cold biopsy forceps. Retroflexion within the rectum revealed no evidence of any pathologic internal hemorrhoids. Colonoscope was withdrawn. Findings:: Gastritis and gastric sleeve remnant, nonerosive Polyps as noted above Recommendations:: Anemia may be secondary to nutrition or previous bariatric surgery. Less likely small bowel etiology. Would recommend repeat colonoscopy likely in 2 years pending pathology given polyps and suboptimal preparation. Complications:: None immediately apparent Estimated blood obtained (mL): 3
[2020-12-19 10:00] VITALS: BP 142/81; PULSE 58; RESP 18; TEMP 36.4; O2SAT 100
[2020-12-19 10:10] VITALS: BP 149/77; PULSE 56; RESP 18; TEMP 36.4; O2SAT 98
[2020-12-19 10:33] VITALS: BP 139/95; PULSE 55; RESP 18; TEMP 36.4; O2SAT 99
--- NOTE | 2020-12-19 15:46 | HMH.ANESCL ---
[facility] Anesthesia Checklist - Patient Identification Patient Identification: Arm Band - Structural Data Admitted From: Home Planned Operative Procedure/s: EGD Consent for Planned Operative Procedure(s) Verified: Yes Verified Documents: Surgical Consent, History and Physical - NPO Status Verified Time NPO: 00:00 - Additional verifications Anesthesia Reactions: No - Airway Assessment C-Spine Mobility Assessed: Yes TMJ Mobility Assessed: Yes Dentition: Good Dentition - Neurological Assessment Level of Consciousness: Awake, Alert - Anesthesia Plan Anesthesia Risk discussed: Yes Anesthesia Plan: Verified ASA Class: III Anesthesia Type: MAC [facility] History Medical History: Reports:: Anxiety, Asthma, Coronary Artery Disease, Depression, Hepatitis, Hyperlipidemia, Hypertension, Lung Disease, Migraine, MRSA Denies:: Cancer, Diabetes Mellitus Type 1, Diabetes Mellitus Type 2, Internal Pacemaker, Seizures *Have you ever received a pneumonia vaccine?: Yes *Have you received a flu vaccine this season?: Yes Other Medical History: Reports: Anemia, Arthritis, Cataracts, Hypothyroidism, Thyroid Disease, Other Anesthesia experience/problems:: None Laterality Cases: Left: Total Hip Replacement, Bilateral: Arthroscopy Knee, Total Knee Replacement Other Surgeries: Yes: No Previous Surgery, Bariatric Surgery, Cardiac Catheterization, Cholecystectomy, Colonoscopy, Tubal Ligation, Other (bilateral knee replacement). No: Pacemaker Amputation: No Fractures: No - *Social History Last grade of school completed: Some college Smoking Status: Never smoker Tobacco Type: cigarettes #Yrs smoked (if former smoker): 40 Alcohol Intake: never Alcohol Intake Frequency:: other Substance Use Type: denies use *Occupational Status:: retired Housing: house Household Members: spouse *Travel in the last 8 weeks: None - Psychiatric History Pschychiatric History:: Reports:: Anxiety, Depression Family Hx:: Hypertension, Thyroid Disorder, Cancer
== END 2020-12-19 10:33 | disposition home or self-care (01) ==
LOC: OUTP 07:34
PROVIDERS: PCP Family Medicine; Visit Provider Surgery
PROC: 0DJ08ZZ Inspection of Upper Intestinal Tract, Via Natural or Artificial Opening Endoscopic (ICD-10-PCS; CPT 43235; principal; 2020-12-19 08:30)
DX: D50.9 Iron deficiency anemia, unspecified (principal); K63.5 Polyp of colon; K29.60 Other gastritis without bleeding; Z98.84 Bariatric surgery status; F41.9 Anxiety disorder, unspecified; J45.909 Unspecified asthma, uncomplicated; I25.10 Atherosclerotic heart disease of native coronary artery without angina pectoris; F32.9 Major depressive disorder, single episode, unspecified; E78.5 Hyperlipidemia, unspecified; I10 Essential (primary) hypertension; J98.9 Respiratory disorder, unspecified; G43.909 Migraine, unspecified, not intractable, without status migrainosus
CPT/HCPCS: 43239; 45380; 45385; 87339; 88305

== ENCOUNTER → 2021-01-25 12:49 | Outpatient (CLI) | payer MEDICARE, MEDICAID, SELFPAY ==
--- NOTE | 2021-01-25 12:55 | CT_ITS ---
Procedure: CT ANGIO HEAD CLINICAL HISTORY: WEAKNESS,VERTEBROBASILAR ARTERY INSUFFICIENCY COMPARISON: CT CT ANGIO neck from 01/25/2021 TECHNIQUE: IV Contrast: 100ml Isovue 370 Axial images obtained with sagittal and coronal reformats. All CT scans at the facility use one or more dose reduction, viz: automated exposure control, ma/kV adjustment per patient size (including targeted exams where dose is matched to indication, i.e. head), or iterative reconstruction technique. FINDINGS: CTA neck: The carotids are tortuous. No stenosis, ulcerating plaque, dissection, or other significant anomaly of the carotids. The left vertebral has an unremarkable appearance. The right vertebral is somewhat hypoplastic. The the right vertebral enters the vertebral foramen of the cervical spine at the C4 level while the normal left vertebral artery enters the vertebral foramen at the C6 level.. The aortic arch has an unremarkable appearance. CTA of the brain: The carotids and [id number] have an unremarkable appearance. No aneurysm or AVM apparent. The right vertebral artery is smaller than the left vertebral artery within the neck approximately 1/2 the size of the left vertebral. However, when the right vertebral enters the posterior fossa it becomes even smaller approximately 1/4 the size of the left vertebral. The basilar artery is slightly smaller than expected even smaller than the left vertebral artery. No plaque or dissection is apparent. No obvious sinus thrombosis. No enhancing lesions midline shift or mass effect is evident. Degenerative disc disease is present at C5-C6 and C6-C7. There is scattered facet and uncovertebral hypertrophy with right lateral foraminal narrowing at C3-C4. IMPRESSION: 1. Hypoplastic right vertebral artery as described above which becomes even smaller within the posterior fossa. The left vertebral artery is normal in caliber. The basilar artery also appears smaller than expected smaller than the left vertebral artery. 2. No aneurysm or dissection. 3. No carotid stenosis. Dictated by: Richard Moore MD 01/28/2021 09:11 Richard Moore MD in [place] 01/28/2021 09:11
--- NOTE | 2021-01-25 12:55 | CT_ITS ---
Procedure: CT ANGIO NECK CLINICAL HISTORY: WEAKNESS,VERTEBROBASILAR ARTERY INSUFFICIENCY COMPARISON: CT CT ANGIO HEAD from 01/25/2021 TECHNIQUE: IV Contrast: 100ml Isovue 370 Axial images obtained with sagittal and coronal reformats. All CT scans at the facility use one or more dose reduction, viz: automated exposure control, ma/kV adjustment per patient size (including targeted exams where dose is matched to indication, i.e. head), or iterative reconstruction technique. FINDINGS: CTA neck: The carotids are tortuous. No stenosis, ulcerating plaque, dissection, or other significant anomaly of the carotids. The left vertebral has an unremarkable appearance. The right vertebral is somewhat hypoplastic. The the right vertebral enters the vertebral foramen of the cervical spine at the C4 level while the normal left vertebral artery enters the vertebral foramen at the C6 level.. The aortic arch has an unremarkable appearance. CTA of the brain: The carotids and [id number] have an unremarkable appearance. No aneurysm or AVM apparent. The right vertebral artery is smaller than the left vertebral artery within the neck approximately 1/2 the size of the left vertebral. However, when the right vertebral enters the posterior fossa it becomes even smaller approximately 1/4 the size of the left vertebral. The basilar artery is slightly smaller than expected even smaller than the left vertebral artery. No plaque or dissection is apparent. No obvious sinus thrombosis. No enhancing lesions midline shift or mass effect is evident. Degenerative disc disease is present at C5-C6 and C6-C7. There is scattered facet and uncovertebral hypertrophy with right lateral foraminal narrowing at C3-C4. IMPRESSION: 1. Hypoplastic right vertebral artery as described above which becomes even smaller within the posterior fossa. The left vertebral artery is normal in caliber. The basilar artery also appears smaller than expected smaller than the left vertebral artery. 2. No aneurysm or dissection. 3. No carotid stenosis. Dictated by: Richard Moore MD 01/28/2021 09:10 Richard Moore MD in [facility] 01/28/2021 09:10
[2021-01-25 13:25] LABS: Blood Urea Nitrogen 16 mg/dl (7-17); Estimated Glomerular Filt Rate 72 ml/min (>60); GFR (African American) 88 ML/MIN (>60)
== END ==
PROVIDERS: PCP Family Medicine; Visit Provider Family Medicine
DX: R53.1 Weakness (principal); G45.0 Vertebro-basilar artery syndrome
CPT/HCPCS: 36415; 70496; 70498; 82565; 84520; Q9967

== ENCOUNTER → 2021-01-28 08:41 | Outpatient (CLI) | payer MEDICARE, MEDICAID, SELFPAY ==
--- NOTE | 2021-01-28 08:42 | FL_ITS ---
PROCEDURE: FL UPPER GI SMALL BOWEL CLINICAL INDICATION: anemia Anemia COMPARISON: CR,RF UGIWO UGI SERIES W/O AIR from 02/07/2016 FINDINGS: [place] exam shows suture line along the upper abdominal region medially on the left. Prior cholecystectomy. Lumbar scoliosis convex left with degenerative change. Linear striations noted within the distal esophagus consistent with feline esophagus which may be seen with reflux. There is a small hiatal hernia. Prior gastric sleeve surgery. No ulcer or mass evident of the stomach or duodenum. Small bowel has an unremarkable appearance. No obstructing lesions mucosal abnormalities or mass is apparent. Spot views of the terminal ileum are unremarkable. IMPRESSION: 1. 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 2. Prior gastric sleeve surgery 3. Unremarkable small bowel Dictated by: Richard Moore MD 01/28/2021 12:34 Richard Moore MD in [place] 01/28/2021 12:34
== END ==
PROVIDERS: PCP Family Medicine; Visit Provider Surgery
DX: D64.9 Anemia, unspecified (principal)
CPT/HCPCS: 74246; 74248

== ENCOUNTER → 2021-01-29 09:36 | Outpatient (CLI) | payer MEDICARE, MEDICAID, SELFPAY ==
--- NOTE | 2021-01-29 09:41 | CA_ITS ---
APPROVED REPORT Receivables Specialist: SHOSHANA Laterality: Bilateral Study Quality: Good Indications: left leg numbness,CAD,HTN,HLP,EX SMOKER Doppler Spectral Velocity Analysis dICA (R) 111.40/35.40 cm/s dICA (L) 50.50/12.50 cm/s Moni (R) 123.50/46.40 cm/s Moni (L) 83.20/33.10 cm/s pICA (R) 67.40/22.50 cm/s pICA (L) 55.50/18.70 cm/s dCCA (R) 93.40/22.30 cm/s dCCA (L) 70.90/19.40 cm/s pCCA (R) 74.50/16.70 cm/s pCCA (L) 107.40/19.20 cm/s Vert (R) 42.50/11.30 cm/s Vert (L) 46.80/12.30 cm/s ICA/CCA 1.31 Findings Duplex evaluation demonstrates stenosis of the right proximal internal carotid artery <20% with PSV <140 cm/sec, EDV <100 cm/sec, and IC/CC Ratio <4.0.Duplex evaluation demonstrates stenosis of the left proximal internal carotid artery <20% with PSV <140 cm/sec, EDV <100 cm/sec, and IC/CC Ratio <4.0. Tortuous bilateral ICA's accounting for elevated velocities obtained. Antegrade flow seen bilateral vertebral arteries. Conclusion Duplex evaluation demonstrates stenosis of the right proximal internal carotid artery <20% with PSV <140 cm/sec, EDV <100 cm/sec, and IC/CC Ratio <4.0.Duplex evaluation demonstrates stenosis of the left proximal internal carotid artery <20% with PSV <140 cm/sec, EDV <100 cm/sec, and IC/CC Ratio <4.0. Tortuous bilateral ICA's accounting for elevated velocities obtained. Antegrade flow seen bilateral vertebral arteries. Electronically signed by : Richard Moore MD 01/29/2021 15:42:07
== END ==
PROVIDERS: PCP Family Medicine; Visit Provider Internal Medicine Cardiovascular Disease
DX: R20.0 Anesthesia of skin (principal)
CPT/HCPCS: 93880

== ENCOUNTER → 2021-01-31 13:25 | Outpatient (CLI) | payer MEDICARE, MEDICAID, SELFPAY ==
[2021-01-31 14:16] LABS: Basophils % 0.4 % (0.1-2.0); Eosinophils # 0.1 K/mm3 (0.0-0.4); Eosinophils % 1.2 % (0.1-12.0); Hematocrit 33.8 % (37.0-47.0); Hemoglobin 10.4 g/dL (12.2-16.2); Lymphocytes # 1.4 K/mm3 (0.7-4.5); Lymphocytes % 21.3 % (10-50); Mean Corpuscular HGB Conc 30.7 g/dL (31.8-35.4); Mean Corpuscular Hemoglobin 26.1 pg (27.0-31.2); Mean Platelet Volume 7.3 fl (7.4-10.4); Monocytes # 0.4 K/mm3 (0.1-1.0); Monocytes % 6.5 % (1.7-9.3); Neutrophils # 4.5 K/mm3 (1.8-7.8); Neutrophils % 70.6 % (37.0-80.0); Platelet Count 283 K/mm3 (142-424); Red Blood Count 3.98 M/mm3 (4.20-5.40); Red Cell Distribution Width 21.3 % (11.5-17.5); White Blood Count 6.4 K/mm3 (4.8-10.8)
[2021-01-31 14:51] LABS: Alanine Aminotransferase 14 U/L (12-78); Albumin Level 3.9 g/dl (3.5-5.0); Albumin/Globulin Ratio 1.4 (1.1-1.8); Alkaline Phosphatase 85 U/L (38-126); Aspartate Amino Transferase 25 U/L (14-36); Bilirubin,Total 0.5 mg/dl (0.2-1.3); Blood Urea Nitrogen 11 mg/dl (7-17); Calcium 9.4 mg/dl (8.4-10.2); Carbon Dioxide 27 mmol/L (22.0-30.0); Chloride 104 mmol/L (98-107); Estimated Glomerular Filt Rate 85 ml/min (>60); GFR (African American) 102 ML/MIN (>60); Globulin 2.7 g/dL (1.3-3.2); Glucose 82 mg/dl (74-100); Sodium 140 mmol/L (136-145); Total Protein,Serum 6.6 g/dl (6.3-8.2)
[2021-01-31 15:36] LABS: Iron 37 ug/dL (37-170)
[2021-01-31 15:46] LABS: Total Iron Binding Capacity 412 ug/dL (265-497)
[2021-01-31 16:13] LABS: Ferritin 14.5 ng/ml (11.1-264)
== END ==
PROVIDERS: Visit Provider Internal Medicine Medical Oncology
DX: D50.9 Iron deficiency anemia, unspecified (principal)
CPT/HCPCS: 36415; 80053; 82728; 83540; 83550; 85025

== ENCOUNTER 2021-02-07 09:30 | Outpatient (CLI) | payer MEDICARE, MEDICAID, SELFPAY ==
[2021-02-07 10:10] VITALS: BP 105/61; PULSE 62; RESP 18; TEMP 36.6; O2SAT 98
[2021-02-07 10:45] VITALS: BP 113/61; PULSE 58; RESP 18
== END 2021-02-07 11:00 | disposition home or self-care (01) ==
LOC: INF 09:38
PROVIDERS: Visit Provider Internal Medicine Medical Oncology
DX: D50.9 Iron deficiency anemia, unspecified (principal)
CPT/HCPCS: 96365; J1439

== ENCOUNTER 2021-02-14 13:09 | Outpatient (CLI) | payer MEDICARE, MEDICAID, SELFPAY ==
[2021-02-14 13:24] VITALS: BP 123/61; PULSE 67; RESP 18; TEMP 36.6; O2SAT 98
[2021-02-14 13:45] VITALS: BP 106/54; PULSE 85; RESP 16; O2SAT 97
[2021-02-14 14:05] VITALS: BP 126/64; PULSE 62; RESP 16; TEMP 36.6; O2SAT 98
== END 2021-02-14 14:07 | disposition home or self-care (01) ==
LOC: INF 13:09
PROVIDERS: Visit Provider Internal Medicine Medical Oncology
DX: D50.9 Iron deficiency anemia, unspecified (principal)
CPT/HCPCS: 96365; J1439

== ENCOUNTER → 2021-03-13 12:04 | Outpatient (CLI) | payer MEDICARE, MEDICAID, SELFPAY ==
[2021-03-13 12:43] LABS: Basophils % 0.5 % (0.1-2.0); Eosinophils # 0.1 K/mm3 (0.0-0.4); Eosinophils % 2.6 % (0.1-12.0); Hematocrit 39.5 % (37.0-47.0); Hemoglobin 12.7 g/dL (12.2-16.2); Lymphocytes # 1.6 K/mm3 (0.7-4.5); Lymphocytes % 30.8 % (10-50); Mean Corpuscular HGB Conc 32.1 g/dL (31.8-35.4); Mean Corpuscular Volume 96.7 fl (81-99); Monocytes # 0.3 K/mm3 (0.1-1.0); Monocytes % 5.8 % (1.7-9.3); Neutrophils # 3.1 K/mm3 (1.8-7.8); Neutrophils % 60.4 % (37.0-80.0); Platelet Count 262 K/mm3 (142-424); Red Blood Count 4.09 M/mm3 (4.20-5.40); Red Cell Distribution Width 20.2 % (11.5-17.5); White Blood Count 5.2 K/mm3 (4.8-10.8)
[2021-03-13 13:36] LABS: Alanine Aminotransferase 18 U/L (12-78); Albumin/Globulin Ratio 1.5 (1.1-1.8); Alkaline Phosphatase 88 U/L (38-126); Anion Gap 12.1 mEq/L (5-15); Aspartate Amino Transferase 28 U/L (14-36); Bilirubin,Total 0.4 mg/dl (0.2-1.3); Blood Urea Nitrogen 12 mg/dl (7-17); Calcium 9.6 mg/dl (8.4-10.2); Carbon Dioxide 30 mmol/L (22.0-30.0); Chloride 103 mmol/L (98-107); Estimated Glomerular Filt Rate 85 ml/min (>60); GFR (African American) 102 ML/MIN (>60); Globulin 2.6 g/dL (1.3-3.2); Glucose 74 mg/dl (74-100); Potassium 4.1 mmoL/L (3.5-5.1); Sodium 141 mmol/L (136-145); Total Protein,Serum 6.6 g/dl (6.3-8.2)
[2021-03-13 13:51] LABS: Iron 97 ug/dL (37-170)
[2021-03-13 14:01] LABS: Total Iron Binding Capacity 281 ug/dL (265-497)
[2021-03-13 14:28] LABS: Ferritin 159 ng/ml (11.1-264)
== END ==
PROVIDERS: Visit Provider Internal Medicine Medical Oncology
DX: D50.9 Iron deficiency anemia, unspecified (principal)
CPT/HCPCS: 36415; 80053; 82728; 83540; 83550; 85025

== ENCOUNTER 2021-03-25 12:04 | Emergency (ER) | payer MEDICARE, MEDICAID, SELFPAY ==
[2021-03-25 12:50] VITALS: BP 129/67; PULSE 87; RESP 22; TEMP 36.9; O2SAT 99; BMI 39.1
--- NOTE | 2021-03-25 13:01 | HMH.EDUTC ---
[facility] Disposition Clinical Impression: Sinusitis Qualifiers: Sinusitis location: unspecified location Chronicity: unspecified Qualified Code(s): J32.9 - Chronic sinusitis, unspecified Disposition: Home, Self-Care Condition on Discharge: Good Instructions: Sinusitis, DI for Sinusitis Additional Instructions: *Monitor Temp, Over the counter Motrin or Tylenol as directed/as needed Tylenol every 4 hours and Motrin every 6 hours (as long as your family doctor has told you that you can take it) for fever or pain. and straight to ER if unable to lower temp less than 101.0 after medication given *Warm salt water gargles may help to soothe the throat *Throat Lozenges *Warm fluids like tea with honey may help to soothe the throat *Sleep elevated *Humidifier/Vaporizer *Flonase 2 sprays in each nostril daily but be aware that it may take 2-3 days before you notice improvement Take medication as prescribed Follow up IMMEDIATELY for new or worsening symptoms or no Noticeable improvement over the next 48-72 hours. 911 for difficulty breathing or swallowing You were tested for today for COVID19 your test result should be back in the next 24-48 hours, you may call to the [facility] to see if your test results are back in the next 48 hours [phone] [facility] hours are 9am-9pm You was given a handout with instructions for Self Quarantine and Self isolation for while you wait on test results and what to do if they are positive If you are positive the Health Dept will be contacting you also Prescriptions: Doxycycline Monohydrate [Doxycycline Scurry 100mg Tab] 100 mg PO Q12 5 Days #10 tab Transmission Status: Pending to [facility] Benzonatate [Tessalon Perle 100mg Cap*] 100 mg PO TID PRN #15 cap PRN Reason: Cough Transmission Status: Pending to [facility] Referrals: Jeronimo Guadarrama MD [Primary Care Provider] - As needed Time of Disposition: 13:11 Medical Decision Making - Vishal Inquiry Pt receiving controlled substance: No Vishal was queried for this patient: No Vital Signs: 03/25/21 12:50 Temperature 98.5 F Temperature Source Oral Pulse Rate [Left Brachial] 87 Respiratory Rate 22 Blood Pressure [Left Arm] 129/67 Blood Pressure Mean [Left Arm] 87 Blood Pressure Source [Left Arm] Automatic Cuff Blood Pressure Position [Left Arm] Sitting 02 Sat by Pulse Oximetry 99 Oxygen Delivery Method Room Air Orders (Tests/Meds): ORDERS Category Date Time Status Covid-19 Nasal PCR ([facility]) Routine Lab 03/25/21 12:49 Received [facility] HPI - General Stated complaint: covid exposure, symptoms Time Seen by Provider: 03/25/21 13:01 Mode of Arrival: Ambulatory Source of Information: Patient Limitations: No Limitations Description of Symptoms (Recalled from Triage Doc. by RN): PATIENT C/O COUGH, CONGESTION, AND RUNNY NOSE X 4 DAYS. RECENTLY EXPOSED TO COVID HEENT Symptoms (Recalled from RN notes): Yes Resp Symptoms (Recalled from RN notes): No Skin Symptoms (Recalled from RN notes): No MS Symptoms (Recalled from RN notes): No Functional Status (Recalled from RN notes): WNL - History of Present Illness Provider Complaint: Patient states that her son in law had COVID back around the first of February and she went on a vacation with them towards the end of February States that she is not sure if she may have COVID or sinus infection States that she has been having sinus congestion and pressure for a couple of weeks that has got worse over the last 4 days States that she has had cough and scratchy throat States that she was worried she may have COVID so she came in to get tested - Related Data Home Medications Medication Instructions Recorded Confirmed aspirin 81 mg tablet,delayed 81 mg PO DAILY tab 11/03/17 03/12/21 release atorvastatin 10 mg tablet 10 mg PO ONCE 11/03/17 03/12/21 cetirizine 10 mg capsule 10 mg PO DAILY 11/03/17 03/12/21 potassium chloride 10 mEq 10 meq PO DAILY tab 11/03/17 03/12/21 tablet,extended
[2021-03-25 13:24] VITALS: BP 129/67; PULSE 87; RESP 22; TEMP 36.9; O2SAT 99
== END 2021-03-25 13:29 | disposition home or self-care (01) ==
PROVIDERS: Emergency Provider Nurse Practitioner; PCP Family Medicine
DX: J32.9 Chronic sinusitis, unspecified (principal); Z20.822 Contact with and (suspected) exposure to COVID-19; I10 Essential (primary) hypertension; E78.5 Hyperlipidemia, unspecified; F41.8 Other specified anxiety disorders; E03.9 Hypothyroidism, unspecified; I25.10 Atherosclerotic heart disease of native coronary artery without angina pectoris; Z96.642 Presence of left artificial hip joint; Z87.891 Personal history of nicotine dependence
CPT/HCPCS: G0463; 99202; U0003

== ENCOUNTER → 2021-04-08 09:53 | Outpatient (CLI) | payer MEDICARE, MEDICAID, SELFPAY ==
--- NOTE | 2021-04-08 10:10 | MR_ITS ---
PROCEDURE: MR CERVICAL SPINE WO/W CON CLINICAL INDICATION: sudden onset weakness/tingling all extremities Headache, bilateral shoulder pain, whole body numbness COMPARISON: MR [employer]/O MRI-C-SPINE W/O from 03/11/2017 TECHNIQUE: Standard multiplanar multiecho sequences are performed without contrast. 3-D MIP and myelographic images are also rendered and reviewed FINDINGS: There is slight reversal of the cervical lordosis. Craniocervical junction has an unremarkable appearance. C2-C3: Unremarkable. C3-C4: Facet and and uncovertebral hypertrophy with right lateral recess narrowing. 2 mm anterolisthesis of C3. C4-C5: 3 mm anterolisthesis of C4 on C5. Mild left foraminal narrowing from uncovertebral and facet hypertrophy. C5-C6: Degenerative disc disease with bulging disc with mild left foraminal narrowing from uncovertebral hypertrophy. C6-C7: Degenerative disc disease C7-T1: 3 mm anterolisthesis of C7. Mild degenerative disc disease. No extruded herniated disc or bony canal stenosis. No significant change from the previous exam. IMPRESSION: Cervical spondylosis as described above. No canal stenosis or extruded herniated disc. Mild foraminal narrowing from facet and uncovertebral hypertrophy. Please see above for detailed description at each level. No significant change from the previous exam Dictated by: Richard Moore MD 04/09/2021 05:34 Richard Moore MD in [place] 04/09/2021 05:34
[2021-04-08 10:22] LABS: Basophils % 0.6 % (0.1-2.0); Eosinophils # 0.1 K/mm3 (0.0-0.4); Eosinophils % 1.8 % (0.1-12.0); Hematocrit 40.3 % (37.0-47.0); Hemoglobin 12.9 g/dL (12.2-16.2); Lymphocytes # 1.6 K/mm3 (0.7-4.5); Lymphocytes % 25.1 % (10-50); Mean Corpuscular Hemoglobin 31.4 pg (27.0-31.2); Mean Corpuscular Volume 97.9 fl (81-99); Mean Platelet Volume 7.5 fl (7.4-10.4); Monocytes # 0.4 K/mm3 (0.1-1.0); Monocytes % 6.7 % (1.7-9.3); Neutrophils # 4.3 K/mm3 (1.8-7.8); Neutrophils % 65.9 % (37.0-80.0); Platelet Count 279 K/mm3 (142-424); Red Blood Count 4.12 M/mm3 (4.20-5.40); Red Cell Distribution Width 17.4 % (11.5-17.5); White Blood Count 6.5 K/mm3 (4.8-10.8)
[2021-04-08 10:30] LABS: Chloride 105 mmol/L (98-107); Sodium 140 mmol/L (136-145)
[2021-04-08 10:31] LABS: Potassium 3.9 mmoL/L (3.5-5.1)
[2021-04-08 10:33] LABS: Alanine Aminotransferase 16 U/L (12-78); Albumin Level 3.9 g/dl (3.5-5.0); Alkaline Phosphatase 88 U/L (38-126); Aspartate Amino Transferase 25 U/L (14-36); Bilirubin,Total 0.3 mg/dl (0.2-1.3); Blood Urea Nitrogen 15 mg/dl (7-17); Estimated Glomerular Filt Rate 72 ml/min (>60); GFR (African American) 87 ML/MIN (>60)
[2021-04-08 10:34] LABS: Albumin/Globulin Ratio 1.3 (1.1-1.8); Anion Gap 8.9 mEq/L (5-15); Calcium 9.4 mg/dl (8.4-10.2); Carbon Dioxide 30 mmol/L (22.0-30.0); Glucose 76 mg/dl (74-100); Total Protein,Serum 6.9 g/dl (6.3-8.2)
== END ==
PROVIDERS: Internal Medicine Rheumatology; PCP Family Medicine; Visit Provider Specialist
DX: M54.2 Cervicalgia (principal); R20.0 Anesthesia of skin; R29.898 Other symptoms and signs involving the musculoskeletal system; R93.89 Abnormal findings on diagnostic imaging of other specified body structures
CPT/HCPCS: 36415; 72156; 76376; 80053; 85025; A9576

== ENCOUNTER → 2021-06-14 10:29 | Outpatient (CLI) | payer MEDICARE, MEDICAID, SELFPAY ==
--- NOTE | 2021-06-14 10:34 | MM_ITS ---
PROCEDURE: MM DIG SCREENING MAMM BI W/CAD Digital Breast Tomosynthesis Included CLINICAL INDICATION: SCREENING There is no personal or family history of breast cancer. COMPARISON: MG [facility]BI MM Dig screening mamm BI w/CAD from 11/23/2017 MG DIG MAMM-SCREEN IVY from 03/14/2019 CR XR ANKLE WT BEARING RT MIN 3V from 03/19/2020 MG MM DIG SCREENING MAMM BI W/CAD from 05/11/2020 TECHNIQUE: Standard CC and MLO images and 3D Tomosynthesis was obtained. R2 CAD reviewed. FINDINGS: Mild diffuse scattered fibroglandular densities are seen in both breast on a background of fatty breast parenchyma. There is a small benign-appearing nodular density low in the axilla left breast likely a low-lying node. There are no CAD markings. There is no suspicious lesion in either breast and no suspicious microcalcifications. There is a single tiny benign-appearing microcalcification left breast. IMPRESSION: Fibrofatty parenchyma with no suspicious lesions seen BI-RAD Category: 1 Negative FOLLOW-UP: 1YR 1 Year Follow-up (A letter has been sent to the patient regarding results of the study.) Dictated by: Dr. Patric Lizarraga MD 06/19/2021 09:46 Dr. Patric Lizarraga MD in [place] 06/19/2021 09:46
== END ==
PROVIDERS: PCP Family Medicine; Visit Provider Family Medicine
DX: Z12.31 Encounter for screening mammogram for malignant neoplasm of breast (principal)
CPT/HCPCS: 77063; 77067

== ENCOUNTER → 2021-06-21 16:52 | Outpatient (CLI) | payer MEDICARE, MEDICAID, SELFPAY ==
[2021-06-21 17:00] LABS: MANUAL DIFFERENTIAL MANUAL DIFFERENTIAL (MANUAL DIFF)
[2021-06-21 17:20] LABS: Basophils # 0.1 K/mm3 (0-0.2); Basophils % 1.3 % (0.1-2.0); Eosinophils # 0.4 K/mm3 (0.0-0.4); Eosinophils % 4.7 % (0.1-12.0); Hematocrit 41.4 % (37.0-47.0); Hemoglobin 13.1 g/dL (12.2-16.2); Lymphocytes # 1.9 K/mm3 (0.7-4.5); Lymphocytes % 25.5 % (10-50); Mean Corpuscular HGB Conc 31.7 g/dL (31.8-35.4); Mean Corpuscular Hemoglobin 33.2 pg (27.0-31.2); Mean Corpuscular Volume 104.5 fl (81-99); Monocytes # 0.5 K/mm3 (0.1-1.0); Monocytes % 6.8 % (1.7-9.3); Neutrophils # 4.5 K/mm3 (1.8-7.8); Neutrophils % 61.6 % (37.0-80.0); Platelet Count 310 K/mm3 (142-424); Red Blood Count 3.96 M/mm3 (4.20-5.40); Red Cell Distribution Width 13.8 % (11.5-17.5); White Blood Count 7.4 K/mm3 (4.8-10.8)
[2021-06-21 18:06] LABS: Chloride 102 mmol/L (98-107); Potassium 4.1 mmoL/L (3.5-5.1); Sodium 138 mmol/L (136-145)
[2021-06-21 18:09] LABS: Alanine Aminotransferase 16 U/L (12-78); Albumin Level 3.5 g/dl (3.5-5.0); Albumin/Globulin Ratio 1.2 (1.1-1.8); Alkaline Phosphatase 112 U/L (38-126); Anion Gap 11.1 mEq/L (5-15); Aspartate Amino Transferase 27 U/L (14-36); Bilirubin,Total 0.2 mg/dl (0.2-1.3); Blood Urea Nitrogen 14 mg/dl (7-17); Carbon Dioxide 29 mmol/L (22.0-30.0); Estimated Glomerular Filt Rate 72 ml/min (>60); GFR (African American) 87 ML/MIN (>60); Globulin 2.9 g/dL (1.3-3.2); Total Protein,Serum 6.4 g/dl (6.3-8.2)
[2021-06-21 18:10] LABS: Iron 68 ug/dL (37-170)
[2021-06-21 18:10] LABS: Calcium 9.1 mg/dl (8.4-10.2); Glucose 105 mg/dl (74-100)
[2021-06-21 18:19] LABS: Total Iron Binding Capacity 304 ug/dL (265-497)
[2021-06-21 19:43] LABS: Eosinophils % 1 % (0-3); Lymphocytes % 21 % (10-50); Monocytes % 3 % (2-9); Neutrophils % 71 % (42-76); Total Cells Counted 100
[2021-06-21 19:44] LABS: Hypochromasia 1+; Microcytosis 2+; Platelet Estimate Normal
== END ==
PROVIDERS: Internal Medicine Medical Oncology; Visit Provider Internal Medicine Rheumatology
DX: D50.9 Iron deficiency anemia, unspecified (principal)
CPT/HCPCS: 36415; 80053; 82728; 83540; 83550; 85007; 85014; 85018; 85048; 85049

== ENCOUNTER → 2021-07-30 10:32 | Outpatient (CLI) | payer MEDICARE, MEDICAID, SELFPAY ==
--- NOTE | 2021-07-30 10:33 | CA_ITS ---
APPROVED REPORT EXAM: Comprehensive 2D, Doppler, and color-flow Echocardiogram Patient Accounting Representative: DUSTIN Castano, RVS Ht: 5 ft 5 in Wt: 237lbs BSA: 2.13 BP: 125/71 mmHg Indications: PHTN, CAD,AYO,Edema, HTN, HLD, Left sided numbness 2D Dimensions IVSd 1.27 cm F: 0.6-1.0 LVEF (Visual) 73.20 % PWd 1.02 cm F: 0.6 - 1.0 LA Volume 60.30 mL LVDd 5.09 cm F: 3.9 - 5.3 LA Volume Index 28.44 mL/m2 (M/F) 16-34 LVDs 2.93 cm F: 2.2 - 3.5 Left Atrium 3.68 cm F: 2.7 - 3.8 LVOT 1.89 cm (M/F) 1.5-2.5 M-Mode Dimensions RVDd 1.57 cm (0.9-2.6) LA Diam 3.79 cm (1.9-4.0) LVDd 4.82 cm (3.5-5.7) Ao Diam 3.13 cm (2.0-3.7) LVDs 2.84 cm (3.5-5.7) IVSd 0.99 cm (0.6-1.1) PWd 0.96 cm (0.6-1.1) EF (Teich) 71.80% FS 41.10% EDV (Teich) 108.60 mL TAPSE 2.43 (<1.7) ESV (Teich) 30.60 mL LV Diastology E Decel Time 250.00 (160-240 msec) E/A Ratio 1.05 MED E' 8.50 (< 7 cm/sec) MED A' 7.60 cm/s E'/MED E' Ratio 12.74 (>14) LAT E' 10.70 (<10 cm/sec) LAT A' 12.60 cm/s E/LAT E' Ratio 10.12 (>14) Aortic Valve LVOT Max 140.00 (70-110 cm/s) LVOT VTI 32.62 cm AoV Peak Yoan. 156.00 (50-130 cm/s) AO Peak GR. 9.80 mmHg AO Mean GR. 5.10 (<5 mmHg) AO VTI 37.18 (18-25 cm) MARTHA (VTI) 2.46 (2.5-4.5 cm2) Mitral Valve MV A Velocity 103.00 (40-130 cm/s) E/A Ratio 1.05 MV Decel. Time 250.00 (160-240 ms) MV Mean Gr. 1.90 (<2mmHg) Tricuspid Valve TR P. Velocity 248.00 cm/s RAP Estimate 10.00 mmHg RVSP 34.60 mmHg Left Ventricle Left atrium is mildly enlarged, left ventricle is normal size, there is no concentric left ventricular hypertrophy, visually estimated ejection fraction 55% with no regional wall motion abnormality. Diastolic parameters are within normal range. Right Ventricle Right atrium and right ventricle are normal size and contractility. Aortic Valve Aortic valve is minimally thickened and fibrosed, there is no aortic stenosis or aortic insufficiency. Mitral Valve Mitral valve grossly normal, there is trace mitral regurgitation. Tricuspid Valve Tricuspid valve grossly normal, there is trace tricuspid regurgitation, calculated right ventricular systolic pressure is 32 mmHg. Pulmonic Valve Pulmonic valve is poorly visualized. Great Vessels Aortic root is normal size. Inferior vena cava normal size with normal inspiratory collapse. Pericardium No significant pericardial effusion. Conclusion 1. Mildly enlarged left atrium, normal left ventricular size, visually estimated ejection fraction 55% with no regional wall motion abnormality, diastolic parameters of the normal range. 2. Mild mitral and tricuspid regurgitation, calculated right ventricular systolic pressure 32 mmHg. 3. No significant pericardial effusion noted. 4. Inferior vena cava normal size with normal inspiratory collapse. Electronically signed by : Cristiano Connell MD 07/30/2021 18:52:08
== END ==
PROVIDERS: PCP Family Medicine; Visit Provider Nurse Practitioner Family
DX: I10 Essential (primary) hypertension; I25.118 Atherosclerotic heart disease of native coronary artery with other forms of angina pectoris; I27.20 Pulmonary hypertension, unspecified; I65.29 Occlusion and stenosis of unspecified carotid artery; R20.0 Anesthesia of skin; R60.9 Edema, unspecified
CPT/HCPCS: 93306

== ENCOUNTER → 2021-08-02 14:45 | Outpatient (CLI) | payer MEDICARE, MEDICAID, SELFPAY ==
[2021-08-02 16:31] LABS: Basophils % 0.5 % (0.1-2.0); Eosinophils # 0.3 K/mm3 (0.0-0.4); Eosinophils % 4.2 % (0.1-12.0); Hemoglobin 13.9 g/dL (12.2-16.2); Lymphocytes # 1.6 K/mm3 (0.7-4.5); Lymphocytes % 19.3 % (10-50); Mean Corpuscular HGB Conc 32.4 g/dL (31.8-35.4); Mean Corpuscular Hemoglobin 32.5 pg (27.0-31.2); Mean Corpuscular Volume 100.4 fl (81-99); Mean Platelet Volume 7.4 fl (7.4-10.4); Monocytes # 0.5 K/mm3 (0.1-1.0); Monocytes % 5.5 % (1.7-9.3); Neutrophils # 5.8 K/mm3 (1.8-7.8); Neutrophils % 70.6 % (37.0-80.0); Platelet Count 279 K/mm3 (142-424); Red Blood Count 4.28 M/mm3 (4.20-5.40); Red Cell Distribution Width 12.7 % (11.5-17.5); White Blood Count 8.2 K/mm3 (4.8-10.8)
== END ==
PROVIDERS: PCP Family Medicine; Visit Provider Nurse Practitioner
DX: U07.1 COVID-19 (principal)
CPT/HCPCS: 36415; 85025; 87275; 87276; C9803; U0003; U0005

== ENCOUNTER → 2021-08-08 12:11 | Outpatient (CLI) | payer MEDICARE, MEDICAID, SELFPAY ==
[2021-08-08 13:17] LABS: Chloride 100 mmol/L (98-107); Potassium 3.9 mmoL/L (3.5-5.1); Sodium 139 mmol/L (136-145)
[2021-08-08 13:20] LABS: Anion Gap 10.9 mEq/L (5-15); Blood Urea Nitrogen 14 mg/dl (7-17); Calcium 9.7 mg/dl (8.4-10.2); Carbon Dioxide 32 mmol/L (22.0-30.0); Estimated Glomerular Filt Rate 84 ml/min (>60); GFR (African American) 102 ML/MIN (>60); Glucose 89 mg/dl (74-100)
== END ==
PROVIDERS: Visit Provider Physician Assistant
DX: I10 Essential (primary) hypertension; I25.118 Atherosclerotic heart disease of native coronary artery with other forms of angina pectoris; I27.20 Pulmonary hypertension, unspecified; R06.09 Other forms of dyspnea; R60.9 Edema, unspecified; E78.49 Other hyperlipidemia
CPT/HCPCS: 36415; 80048; 83880

== ENCOUNTER → 2021-09-02 14:10 | Outpatient (CLI) | payer MEDICARE, MEDICAID, SELFPAY ==
[2021-09-02 15:08] LABS: Basophils # 0.1 K/mm3 (0-0.2); Basophils % 1.5 % (0.1-2.0); Eosinophils # 0.2 K/mm3 (0.0-0.4); Eosinophils % 3.2 % (0.1-12.0); Hematocrit 43.2 % (37.0-47.0); Hemoglobin 13.8 g/dL (12.2-16.2); Lymphocytes # 1.6 K/mm3 (0.7-4.5); Lymphocytes % 22.9 % (10-50); Mean Corpuscular HGB Conc 31.9 g/dL (31.8-35.4); Mean Corpuscular Volume 100.2 fl (81-99); Mean Platelet Volume 7.9 fl (7.4-10.4); Monocytes # 0.5 K/mm3 (0.1-1.0); Monocytes % 7.7 % (1.7-9.3); Neutrophils # 4.5 K/mm3 (1.8-7.8); Neutrophils % 64.7 % (37.0-80.0); Platelet Count 307 K/mm3 (142-424); Red Blood Count 4.31 M/mm3 (4.20-5.40); Red Cell Distribution Width 13.3 % (11.5-17.5)
[2021-09-02 15:47] LABS: Iron 64 ug/dL (37-170)
[2021-09-02 16:12] LABS: Total Iron Binding Capacity 303 ug/dL (265-497)
[2021-09-02 16:25] LABS: Ferritin 24.3 ng/ml (11.1-264)
== END ==
PROVIDERS: PCP Family Medicine; Visit Provider Internal Medicine Medical Oncology
DX: D64.9 Anemia, unspecified (principal)
CPT/HCPCS: 36415; 82728; 83540; 83550; 85025

== ENCOUNTER → 2021-10-07 14:01 | Outpatient (CLI) | payer MEDICARE, MEDICAID, SELFPAY | PROVIDERS: PCP Family Medicine; Visit Provider Nurse Practitioner | DX: U07.1 COVID-19 (principal) | CPT/HCPCS: C9803; U0003; U0005 ==

== ENCOUNTER → 2021-10-07 14:13 | Outpatient (CLI) | payer MEDICARE, MEDICAID, SELFPAY ==
--- NOTE | 2021-10-07 14:27 | XR_ITS ---
FINAL REPORT CLINICAL HISTORY: COVID OUT PATIENT cough, soa FINDINGS: The heart size is normal. The mediastinum is normal. There is no focal infiltrate or edema. There are no pleural effusions. There is no pneumothorax. There is significant degenerative change of the shoulders. There is a presumed loose body along the inferior aspect the right glenohumeral joint measuring 24 mm. IMPRESSION: No acute cardiopulmonary process. Significant degenerative change of the shoulders. Reviewed, Interpreted and Dictated by Jeovanny Pete III, MD Transcribed by Richard Copeland Authenticated by Jeovanny Pete III, MD on 10/07/2021 03:21:59 PM [facility]
[2021-10-07 15:04] LABS: Basophils # 0.1 K/mm3 (0-0.2); Basophils % 0.7 % (0.1-2.0); Eosinophils # 0.2 K/mm3 (0.0-0.4); Eosinophils % 2.3 % (0.1-12.0); Hematocrit 39.4 % (37.0-47.0); Hemoglobin 12.6 g/dL (12.2-16.2); Lymphocytes # 1.3 K/mm3 (0.7-4.5); Lymphocytes % 18.6 % (10-50); Mean Corpuscular Hemoglobin 31.9 pg (27.0-31.2); Mean Corpuscular Volume 99.7 fl (81-99); Mean Platelet Volume 7.9 fl (7.4-10.4); Monocytes # 0.5 K/mm3 (0.1-1.0); Monocytes % 6.8 % (1.7-9.3); Neutrophils # 5.1 K/mm3 (1.8-7.8); Neutrophils % 71.6 % (37.0-80.0); Platelet Count 283 K/mm3 (142-424); Red Blood Count 3.95 M/mm3 (4.20-5.40); Red Cell Distribution Width 13.4 % (11.5-17.5); White Blood Count 7.2 K/mm3 (4.8-10.8)
== END ==
PROVIDERS: PCP Family Medicine; Visit Provider Family Medicine
DX: Z20.822 Contact with and (suspected) exposure to COVID-19 (principal)
CPT/HCPCS: 36415; 71045; 85025; C9803; U0003; U0005

== ENCOUNTER 2021-10-07 14:58 | Emergency (ER) | payer MEDICARE, MEDICAID, SELFPAY ==
[2021-10-07 14:58] VITALS: BP 122/68; PULSE 77; RESP 16; TEMP 36.5; O2SAT 100; BMI 36.6
[2021-10-07 15:08] VITALS: BMI 36.6
--- NOTE | 2021-10-07 15:09 | XR_ITS ---
FINAL REPORT CLINICAL HISTORY: FALL FINDINGS: Two views of the right knee were obtained. There has been right knee arthroplasty. There is no evidence of fracture or dislocation. There is a small calcification adjacent to the tibial tuberosity. There is a chronic calcifications superior to the patella. IMPRESSION: No acute abnormality identified. Reviewed, Interpreted and Dictated by Jeovanny Pete III, MD Transcribed by Richard Copeland Authenticated by Jeovanny Pete III, MD on 10/07/2021 04:36:13 PM [facility]
[2021-10-07 16:00] VITALS: BP 120/64; PULSE 67; O2SAT 98
--- NOTE | 2021-10-07 16:06 | HMH.EDEXTP ---
ED Disposition Clinical Impression: Ankle sprain and strain Disposition: Home, Self-Care Condition on Discharge: Good Instructions: Ankle Sprain Additional Instructions: Please follow up with your primary care team in 2-3 days for symptoms. Please take tylenol and ibuprofen for pain control. Please return for worsening pain or inability to ambulate. Referrals: Jeronimo Guadarrama MD [Primary Care Provider] - - Critical Care Critical Care Time: No Attestation: On 10/07/21, the high probability of a clinically significant, sudden or life threatening deterioration of the following system(s) required my full and direct attention, intervention and personal management. The time I documented below is in addition to time spent performing reported procedures but includes the following listed in this critical care notation. Medical Decision Making - Medical Records Medical records reviewed: Yes: I reviewed the patient's medical records. - Vishal Inquiry Pt receiving controlled substance: No Vital Signs: 10/07/21 14:58 10/07/21 16:00 10/07/21 16:31 Temperature 97.7 F Temperature Source Oral Pulse Rate 67 66 Pulse Rate [Right] 77 Respiratory Rate 16 Blood Pressure 120/64 91/68 L Blood Pressure [Right Arm] 122/68 Blood Pressure Mean 84 75 Blood Pressure Mean [Right Arm] 86 Blood Pressure Source Blood Pressure Source [Right Arm] Automatic Cuff Blood Pressure Position Blood Pressure Position [Right Arm] Sitting 02 Sat by Pulse Oximetry 100 98 98 Oxygen Delivery Method Room Air 10/07/21 17:06 Temperature 97.7 F Temperature Source Pulse Rate 66 Pulse Rate [Right] Respiratory Rate 16 Blood Pressure 91/68 L Blood Pressure [Right Arm] Blood Pressure Mean Blood Pressure Mean [Right Arm] Blood Pressure Source Automatic Cuff Blood Pressure Source [Right Arm] Blood Pressure Position Sitting Blood Pressure Position [Right Arm] 02 Sat by Pulse Oximetry Oxygen Delivery Method - Lab Data Lab results reviewed: Yes: I reviewed the patient's lab results. Orders (Tests/Meds): ED MEDICATIONS Discontinued Medications Generic Name Dose Route Start Last Admin Trade Name Freq PRN Reason Stop Dose Admin Acetaminophen 1,000 mg 10/07/21 16:00 10/07/21 16:12 Acetaminophen 500mg Tab PO 10/07/21 16:01 1,000 mg ONCE ONE Administration Medical Decision Narrative: Miss Ulrich is a 66 yo female presenting with isolated (R) knee pain following a mechanical fall. Patient denies hitting head, -LOC. Patient is neurovascularly intact and hemodynamically stable. Knee is well appearing no open lacerations or abrasions, full ROM. No significant swelling noted. Patient able to ambulate and bear weight. Patient is given tylenol for pain control. XR of the knee shows no evidence of an acute fracture. Patient is amblated and instructed to fu w/ her pcp in 2-3 days for further management. Patient instructed to use tyle/ib and rest for symptomatic relief. Patient likely has sprain, however pateitn informed if symptoms don't improve she may require further imaging and physical therapy, to discuss w/ her primary care team. Extremity Problem HPI - General Chief complaint: Extremity Injury, Lower Stated complaint: fell in parking lot Time Seen by Provider: 10/07/21 15:00 Mode of Arrival: Wheelchair Source of Information: Patient Limitations: No Limitations Description of Symptoms (Recalled from ER Triage Doc. by RN): Pt was coming in hospital and was stepping up on the sidewalk and went down on her right knee. No other injuries or complaints at this time. Denies hitting head, -LOC. No chest, abdominal, neck or back pain. No open lacerations or abrsions noted. - History of Present Illness Complaint: extremity pain Onset (ago): minute(s) Consistency: constant Location: right, knee Severity scale (1-10): 6 Quality: dull Radiation: none Relieving factors: nothing Exacerbating factors
[2021-10-07 16:31] VITALS: BP 91/68; PULSE 66; O2SAT 98
[2021-10-07 17:06] VITALS: BP 91/68; PULSE 66; RESP 16; TEMP 36.5; O2SAT 100
== END 2021-10-07 17:07 | disposition home or self-care (01) ==
PROVIDERS: Emergency Provider Student in an Organized Health Care Education/Training Program; PCP Family Medicine
DX: S93.401A Sprain of unspecified ligament of right ankle, initial encounter (principal); W01.0XXA Fall on same level from slipping, tripping and stumbling without subsequent striking against object, initial encounter; Y92.481 Parking lot as the place of occurrence of the external cause; I25.10 Atherosclerotic heart disease of native coronary artery without angina pectoris; Z96.642 Presence of left artificial hip joint; Z87.891 Personal history of nicotine dependence; U07.1 COVID-19
CPT/HCPCS: 36415; 71045; 73560; 85025; 99282; C9803; U0003; U0005

== ENCOUNTER → 2021-10-24 13:24 | Outpatient (CLI) | payer MEDICARE, MEDICAID, SELFPAY ==
--- NOTE | 2021-10-24 13:33 | XR_ITS ---
FINAL REPORT CLINICAL HISTORY: FELL HAD ORIGINAL XR THERE. PLEASE COMPARE. follow up COMPARISON: 05/05/2020 FINDINGS: LEFT ANKLE Three views demonstrate no acute fracture or dislocation. There are moderate changes of degenerative changes of the foot, stable. A plantar calcaneal spur is identified. Talocalcaneal fusion is stable. There is medial and lateral soft tissue swelling. IMPRESSION: Degenerative and chronic appearing findings. Reviewed, Interpreted and Dictated by Jeovanny Pete III, MD Transcribed by Yissel Montiel Authenticated by Jeovanny Pete III, MD on 10/24/2021 03:36:22 PM [facility]
== END ==
PROVIDERS: PCP Family Medicine; Visit Provider Internal Medicine Rheumatology
DX: M25.572 Pain in left ankle and joints of left foot (principal)
CPT/HCPCS: 73610

== ENCOUNTER → 2021-11-04 14:08 | Outpatient (CLI) | payer MEDICARE, MEDICAID, SELFPAY ==
[2021-11-06 13:12] LABS: Sjogren's Anti-SS-A <0.2 AI (0.0-0.9); Sjogren's Anti-SS-B <0.2 AI (0.0-0.9)
== END ==
PROVIDERS: Visit Provider Internal Medicine Rheumatology
DX: M06.9 Rheumatoid arthritis, unspecified (principal); B37.9 Candidiasis, unspecified; D64.9 Anemia, unspecified; M25.572 Pain in left ankle and joints of left foot
CPT/HCPCS: 36415; 86235

== ENCOUNTER 2021-11-19 09:00 | Outpatient (RCR) | payer SELFPAY | END 2021-11-19 09:05 | disposition home or self-care (01) | LOC: PT 09:00 | PROVIDERS: PCP Family Medicine; Visit Provider Internal Medicine Rheumatology | DX: M25.572 Pain in left ankle and joints of left foot (principal) | CPT/HCPCS: 97010; 97014; 97110; 97112; 97140; 97163; 97760; G0283 ==

== ENCOUNTER 2021-12-04 11:00 | Outpatient (RCR) | payer MEDICARE, MEDICAID, SELFPAY ==
--- NOTE | 2021-11-27 11:59 | HMH.OTOPEV ---
OT Inpatient Evaluation Rehab OT Outpatient Eval Start: 11/27/21 11:47 Freq: Status: Active Protocol: Document 11/27/21 11:48 VIKKI (Rec: 11/27/21 11:59 VIKKI [id number]) Electronically Signed By Sadaf Murry OT 11/27/21 11:48 Outpatient Therapy Subjective History Subjective History 66 year old female referred to skilled OP OT services for L shoulder pain. Patient stated having L shoulder pain for the past 6 months with pain getting worst. Patient reported having difficulty with completing ADL tasks such as grooming/hygiene of washing/brushing hair and getting dressed. Patient reported having L UE frozen shoulder ~8-10 years ago. Patient also reported a hx of falling at home with landing on B shoulders. Chief Complaint Pain,Weakness Symptom Type Ache Symptoms Relieved By Nothing Symptoms Aggravated By Physical Activity Prior Functional Limitations None Current Functional Limitations Reaching,Lifting,Dressing, Driving,Sleeping,Recreation Activity Symptom Description Intermittent Level of pain today (0-10) 5 Pain scale - at its best (0-10) 5 Pain scale - at its worst (0-10) 9 Shoulder/Elbow Eval Shoulder Objective Measurements Shoulder ROM Left Shoulder Abduction Active Range of 90 Motion (degrees) Shoulder Flexion Active Range of Motion 98 (degrees) Query Text: Shoulder External Rotation Active Range 20 of Motion (degrees) Shoulder Internal Rotation Active Range 30 of Motion (degrees) pain with active ROM shoulder exam left standard Shoulder MMT Shoulder Abduction Strength Grade 2+ Poor+ Shoulder Extension Strength Grade 2+ Poor+ Shoulder Flexion Strength Grade 2+ Poor+ Shoulder Horizontal Abduction Strength 2+ Poor+ Grade Shoulder Horizontal Adduction Strength 2+ Poor+ Grade Infraspinatus/Teres Minor Strength Grade 2+ Poor+ Shoulder External Rotation Strength 2+ Poor+ Grade Shoulder Internal Rotation Strength 2+ Poor+ Grade Shoulder Special Tests impingement sign present shoulder exam left standard Shoulder Mccollum-Suresh Impingement
== END 2021-12-04 11:05 | disposition home or self-care (01) ==
LOC: OT 11:00
PROVIDERS: PCP Family Medicine; Visit Provider Family Medicine
DX: M25.512 Pain in left shoulder (principal)
CPT/HCPCS: 97010; 97014; 97110; 97140; 97165; 97530; G0283

== ENCOUNTER → 2021-12-12 14:57 | Outpatient (CLI) | payer MEDICARE, MEDICAID, SELFPAY ==
--- NOTE | 2021-12-12 15:30 | MR_ITS ---
PROCEDURE INFORMATION: Exam: MR Head Without and With Contrast Exam date and time: 12/12/2021 3:48 PM Age: 66 years old Clinical indication: Pain; Headache; Additional info: Worsening of chronic LOVING, new daily persistant LOVING. Constant headache x2wks. No injury or trauma. 19ml prohance given. TECHNIQUE: Imaging protocol: MR of the head without and with intravenous contrast. Contrast material: PROHANCE; Contrast volume: 19 ml; Contrast route: IV; COMPARISON: CT ANGIO HEAD 01/25/2021 1:51 PM FINDINGS: Brain: No bleed, mass, or shift of structures. Basilar cisterns are normal. No diffusion restricted segments. Pre-pontine region, suprasellar region, and cerebellar angles are normal. Cerebral ventricles: Normal. No ventriculomegaly. Pituitary gland and sella: Sella normal. Bones/joints: Clivus normal. Calvarium is normal marrow signal. Paranasal sinuses: Normal as visualized. No acute sinusitis. Mastoid air cells: Normal as visualized. No mastoid effusion. Orbital cavities: Unremarkable. Soft tissues: Soft tissues are unremarkable Other findings: Diploe is normal. Tectum normal. No abnormal enhancement IMPRESSION: Unremarkable. No acute process.
[2021-12-12 15:37] LABS: Chloride 101 mmol/L (98-107); Potassium 3.9 mmoL/L (3.5-5.1); Sodium 137 mmol/L (136-145)
[2021-12-12 15:40] LABS: Anion Gap 6.9 mEq/L (5-15); Blood Urea Nitrogen 18 mg/dl (7-17); Calcium 8.6 mg/dl (8.4-10.2); Carbon Dioxide 33 mmol/L (22.0-30.0); Estimated Glomerular Filt Rate 84 ml/min (>60); GFR (African American) 102 ML/MIN (>60); Glucose 84 mg/dl (74-100)
== END ==
PROVIDERS: PCP Family Medicine; Visit Provider Nurse Practitioner Family
DX: G43.909 Migraine, unspecified, not intractable, without status migrainosus (principal); G43.719 Chronic migraine without aura, intractable, without status migrainosus; G44.52 New daily persistent headache (NDPH)
CPT/HCPCS: 36415; 70553; 80048; A9576

== ENCOUNTER → 2022-01-28 16:12 | Outpatient (CLI) | payer MEDICARE, MEDICAID, SELFPAY ==
[2022-01-28 17:05] LABS: Basophils # 0.1 K/mm3 (0-0.2); Basophils % 0.8 % (0.1-2.0); Eosinophils # 0.2 K/mm3 (0.0-0.4); Eosinophils % 1.4 % (0.1-12.0); Hematocrit 41.8 % (37.0-47.0); Hemoglobin 13.6 g/dL (12.2-16.2); Lymphocytes # 1.4 K/mm3 (0.7-4.5); Lymphocytes % 12.2 % (10-50); Mean Corpuscular HGB Conc 32.5 g/dL (31.8-35.4); Mean Corpuscular Hemoglobin 32.7 pg (27.0-31.2); Mean Corpuscular Volume 100.4 fl (81-99); Mean Platelet Volume 7.8 fl (7.4-10.4); Monocytes # 0.7 K/mm3 (0.1-1.0); Monocytes % 5.8 % (1.7-9.3); Neutrophils # 9.1 K/mm3 (1.8-7.8); Neutrophils % 79.9 % (37.0-80.0); Platelet Count 306 K/mm3 (142-424); Red Blood Count 4.16 M/mm3 (4.20-5.40); Red Cell Distribution Width 13.9 % (11.5-17.5); White Blood Count 11.3 K/mm3 (4.8-10.8)
[2022-01-28 17:41] LABS: Alanine Aminotransferase 16 U/L (12-78); Albumin Level 3.5 g/dl (3.5-5.0); Albumin/Globulin Ratio 1.2 (1.1-1.8); Alkaline Phosphatase 109 U/L (38-126); Anion Gap 11.1 mEq/L (5-15); Aspartate Amino Transferase 26 U/L (14-36); Blood Urea Nitrogen 15 mg/dl (7-17); Carbon Dioxide 28 mmol/L (22.0-30.0); Chloride 98 mmol/L (98-107); Estimated Glomerular Filt Rate 72 ml/min (>60); GFR (African American) 87 ML/MIN (>60); Globulin 2.9 g/dL (1.3-3.2); Glucose 98 mg/dl (74-100); Potassium 3.1 mmoL/L (3.5-5.1); Sodium 134 mmol/L (136-145); Total Protein,Serum 6.4 g/dl (6.3-8.2)
[2022-01-28 17:45] LABS: Bilirubin,Total < 0.1 mg/dl (0.2-1.3)
[2022-01-30 21:08] LABS: QuantiFERON-TB Gold Plus Negative (Negative)
[2022-02-09 20:44] LABS: Hep A Ab, IgM NEGATIVE; Hepatitis B Core Antibody IgM NEGATIVE; Hepatitis B Surface Antigen NEGATIVE
[2022-02-09 20:45] LABS: Hepatitis C Antibody <0.1
== END ==
PROVIDERS: PCP Family Medicine; Visit Provider Internal Medicine Rheumatology
DX: M06.9 Rheumatoid arthritis, unspecified (principal); R53.83 Other fatigue; N28.9 Disorder of kidney and ureter, unspecified; D64.9 Anemia, unspecified; M85.80 Other specified disorders of bone density and structure, unspecified site; Z79.899 Other long term (current) drug therapy
CPT/HCPCS: 36415; 80053; 80074; 85025; 86480

== ENCOUNTER → 2022-02-07 16:29 | Outpatient (CLI) | payer MEDICARE, MEDICAID, SELFPAY ==
[2022-02-07 16:55] LABS: Basophils # 0.2 K/mm3 (0-0.2); Basophils % 2.2 % (0.1-2.0); Eosinophils # 0.2 K/mm3 (0.0-0.4); Eosinophils % 2.3 % (0.1-12.0); Hematocrit 39.9 % (37.0-47.0); Lymphocytes # 1.7 K/mm3 (0.7-4.5); Lymphocytes % 21.4 % (10-50); Mean Corpuscular HGB Conc 32.7 g/dL (31.8-35.4); Mean Corpuscular Hemoglobin 32.7 pg (27.0-31.2); Mean Platelet Volume 7.6 fl (7.4-10.4); Monocytes # 0.5 K/mm3 (0.1-1.0); Monocytes % 5.7 % (1.7-9.3); Neutrophils # 5.5 K/mm3 (1.8-7.8); Neutrophils % 68.4 % (37.0-80.0); Platelet Count 306 K/mm3 (142-424); Red Blood Count 3.99 M/mm3 (4.20-5.40); Red Cell Distribution Width 13.6 % (11.5-17.5)
[2022-02-07 17:22] LABS: Chloride 101 mmol/L (98-107); Potassium 3.6 mmoL/L (3.5-5.1); Sodium 138 mmol/L (136-145)
[2022-02-07 17:25] LABS: Alanine Aminotransferase 14 U/L (12-78); Albumin Level 3.9 g/dl (3.5-5.0); Albumin/Globulin Ratio 1.3 (1.1-1.8); Alkaline Phosphatase 116 U/L (38-126); Anion Gap 9.6 mEq/L (5-15); Aspartate Amino Transferase 28 U/L (14-36); Bilirubin,Total 0.3 mg/dl (0.2-1.3); Blood Urea Nitrogen 16 mg/dl (7-17); Calcium 9.7 mg/dl (8.4-10.2); Carbon Dioxide 31 mmol/L (22.0-30.0); Chol/HDL Ratio 1.9 (1-3.5); Cholesterol 166 mg/dl (140-200); Estimated Glomerular Filt Rate 84 ml/min (>60); GFR (African American) 102 ML/MIN (>60); Globulin 2.9 g/dL (1.3-3.2); Glucose 95 mg/dl (74-100); HDL Cholesterol 86 mg/dl (40-60); Total Protein,Serum 6.8 g/dl (6.3-8.2); Triglycerides 58 mg/dl (30-150); VLDL Cholesterol 12 mg/dL (0-40)
[2022-02-07 17:36] LABS: Direct LDL Cholesterol 62.54 mg/dL (100-129)
[2022-02-07 17:56] LABS: Thyroid Stimulating Hormone 1.77 uIU/mL (0.465-4.68)
== END ==
PROVIDERS: PCP Family Medicine; Visit Provider Family Medicine
DX: E03.9 Hypothyroidism, unspecified (principal); I10 Essential (primary) hypertension; E78.00 Pure hypercholesterolemia, unspecified; D50.9 Iron deficiency anemia, unspecified
CPT/HCPCS: 36415; 80053; 80061; 84443; 85025

== ENCOUNTER → 2022-03-11 11:13 | Outpatient (CLI) | payer MEDICARE, MEDICAID, SELFPAY ==
[2022-03-11 11:47] LABS: Basophils % 0.5 % (0.1-2.0); Eosinophils # 0.1 K/mm3 (0.0-0.4); Eosinophils % 1.9 % (0.1-12.0); Hematocrit 41.5 % (37.0-47.0); Hemoglobin 13.6 g/dL (12.2-16.2); Lymphocytes # 1.6 K/mm3 (0.7-4.5); Lymphocytes % 23.4 % (10-50); Mean Corpuscular HGB Conc 32.7 g/dL (31.8-35.4); Mean Corpuscular Volume 97.7 fl (81-99); Mean Platelet Volume 7.6 fl (7.4-10.4); Monocytes # 0.4 K/mm3 (0.1-1.0); Monocytes % 6.1 % (1.7-9.3); Neutrophils # 4.5 K/mm3 (1.8-7.8); Neutrophils % 68.1 % (37.0-80.0); Platelet Count 270 K/mm3 (142-424); Red Blood Count 4.25 M/mm3 (4.20-5.40); Red Cell Distribution Width 13.5 % (11.5-17.5); White Blood Count 6.6 K/mm3 (4.8-10.8)
[2022-03-11 12:43] LABS: Alanine Aminotransferase 17 U/L (12-78); Albumin Level 3.7 g/dl (3.5-5.0); Albumin/Globulin Ratio 1.3 (1.1-1.8); Alkaline Phosphatase 102 U/L (38-126); Anion Gap 9.4 mEq/L (5-15); Aspartate Amino Transferase 27 U/L (14-36); Bilirubin,Total 0.1 mg/dl (0.2-1.3); Blood Urea Nitrogen 16 mg/dl (7-17); Calcium 9.2 mg/dl (8.4-10.2); Carbon Dioxide 31 mmol/L (22.0-30.0); Chloride 101 mmol/L (98-107); Estimated Glomerular Filt Rate 84 ml/min (>60); GFR (African American) 102 ML/MIN (>60); Globulin 2.9 g/dL (1.3-3.2); Glucose 88 mg/dl (74-100); Potassium 3.4 mmoL/L (3.5-5.1); Sodium 138 mmol/L (136-145); Total Protein,Serum 6.6 g/dl (6.3-8.2)
== END ==
PROVIDERS: PCP Family Medicine; Visit Provider Internal Medicine Rheumatology
DX: D64.9 Anemia, unspecified (principal); M06.9 Rheumatoid arthritis, unspecified; M85.80 Other specified disorders of bone density and structure, unspecified site; N28.9 Disorder of kidney and ureter, unspecified; R68.2 Dry mouth, unspecified
CPT/HCPCS: 36415; 80053; 85025

== ENCOUNTER → 2022-04-08 14:27 | Outpatient (CLI) | payer MEDICARE, MEDICAID, SELFPAY ==
[2022-04-08 15:17] LABS: Basophils # 0.1 K/mm3 (0-0.2); Basophils % 0.8 % (0.1-2.0); Eosinophils # 0.1 K/mm3 (0.0-0.4); Eosinophils % 2.4 % (0.1-12.0); Hematocrit 42.8 % (37.0-47.0); Lymphocytes # 1.6 K/mm3 (0.7-4.5); Lymphocytes % 27.5 % (10-50); Mean Corpuscular HGB Conc 30.5 g/dL (31.8-35.4); Mean Corpuscular Hemoglobin 32.3 pg (27.0-31.2); Mean Platelet Volume 8.1 fl (7.4-10.4); Monocytes # 0.3 K/mm3 (0.1-1.0); Monocytes % 5.9 % (1.7-9.3); Neutrophils # 3.7 K/mm3 (1.8-7.8); Neutrophils % 63.3 % (37.0-80.0); Platelet Count 281 K/mm3 (142-424); Red Blood Count 4.04 M/mm3 (4.20-5.40); Red Cell Distribution Width 14.2 % (11.5-17.5); White Blood Count 5.8 K/mm3 (4.8-10.8)
[2022-04-08 16:24] LABS: Iron 112 ug/dL (37-170)
[2022-04-08 16:33] LABS: Total Iron Binding Capacity 290 ug/dL (265-497)
[2022-04-08 17:00] LABS: Ferritin 22.1 ng/ml (11.1-264)
== END ==
PROVIDERS: PCP Family Medicine; Visit Provider Internal Medicine Medical Oncology
DX: D50.9 Iron deficiency anemia, unspecified (principal)
CPT/HCPCS: 36415; 82728; 83540; 83550; 85025

== ENCOUNTER → 2022-04-14 11:45 | Outpatient (CLI) | payer MEDICARE, MEDICAID, SELFPAY ==
--- NOTE | 2022-04-14 11:50 | XR_ITS ---
FINAL REPORT CLINICAL HISTORY: pain COMPARISON: May 05, 2020 FINDINGS: LEFT FOOT Three views of the left foot demonstrate no acute fracture or dislocation. There is hallux valgus deformity. There is pes planus deformity there are moderately advanced hypertrophic changes of the 1st MTP joint. There is a moderate plantar spur. The soft tissues are unremarkable. IMPRESSION: Hypertrophic changes of the 1st MTP joint. Hallux valgus and pes planus deformities. Reviewed, Interpreted and Dictated by Cesar Fernandez MD Transcribed by Zara Tinoco Authenticated and . [facility]
--- NOTE | 2022-04-14 11:50 | XR_ITS ---
FINAL REPORT CLINICAL HISTORY: pain COMPARISON: October 24, 2021 FINDINGS: LEFT ANKLE 3 views were obtained. There is no acute fracture or dislocation. There is moderate narrowing of the mortise. There is a moderate plantar spur. There are moderate hypertrophic changes at the dorsal margin of the talonavicular joint. There is diffuse soft tissue swelling about the ankle. The IMPRESSION: Moderate hypertrophic changes as described. Moderate narrowing of the mortise. Reviewed, Interpreted and Dictated by Cesar Fernandez MD Transcribed by Zara Tinoco Authenticated and [facility]
--- NOTE | 2022-04-14 11:50 | XR_ITS ---
FINAL REPORT CLINICAL HISTORY: pain COMPARISON: March 19, 2020 FINDINGS: RIGHT ANKLE 3 views were obtained. There is no acute fracture or dislocation. There is a pes planus deformity. There is moderate narrowing of the mortise. There is a moderate plantar spur. There is no soft tissue abnormality. IMPRESSION: Pes planus deformity. Moderate narrowing of the mortise. Reviewed, Interpreted and Dictated by Cesar Fernandez MD Transcribed by Zara Tinoco Authenticated and [facility]
--- NOTE | 2022-04-14 11:50 | XR_ITS ---
FINAL REPORT CLINICAL HISTORY: pain COMPARISON: March 19, 2020 FINDINGS: RIGHT FOOT Three views of the right foot demonstrate no acute fracture or dislocation. There are advanced hypertrophic changes of the intertarsal joints. There is pes planus deformity. There is a moderate plantar calcaneal spur. The soft tissues are unremarkable. IMPRESSION: Advanced hypertrophic changes of the intertarsal joints. Pes planus deformity. Reviewed, Interpreted and Dictated by Cesar Fernandez MD Transcribed by Zara Tinoco Authenticated and [facility]
== END ==
PROVIDERS: PCP Family Medicine; Visit Provider Podiatrist
DX: M25.572 Pain in left ankle and joints of left foot; M25.571 Pain in right ankle and joints of right foot; M79.672 Pain in left foot; M79.671 Pain in right foot
CPT/HCPCS: 73610; 73630

== ENCOUNTER → 2022-05-15 12:59 | Outpatient (CLI) | payer MEDICARE, MEDICAID, SELFPAY ==
--- NOTE | 2022-05-15 13:07 | US_ITS ---
FINAL REPORT CLINICAL HISTORY: CLAUDICATION,LYMPHEDEMA,EX SMOKER FINDINGS: ANKLE/BRACHIAL INDICES FINDINGS: Pressure indices are as follows: RIGHT LOWER EXTREMITY: Ankle brachial pressure index: 1.10 Comments: Normal LEFT LOWER EXTREMITY: Ankle brachial pressure index: 1.18 Comments: Normal IMPRESSION: No evidence of significant obstructive peripheral vascular disease of the lower extremities. Reviewed, Interpreted and Dictated by Cesar Fernandez MD Transcribed by Richard Copeland Authenticated and [facility]
== END ==
PROVIDERS: PCP Family Medicine; Visit Provider Podiatrist
DX: R09.89 Other specified symptoms and signs involving the circulatory and respiratory systems (principal)
CPT/HCPCS: 93923

== ENCOUNTER → 2022-05-20 12:51 | Outpatient (CLI) | payer MEDICARE, MEDICAID, SELFPAY ==
--- NOTE | 2022-05-20 12:52 | CT_ITS ---
FINAL REPORT CLINICAL HISTORY: pain near lateral malleolus per patient. eval left foot and ankle. FINDINGS: CT LEFT FOOT WITHOUT CONTRAST Technique: Axial images through the left foot were performed by computed tomography. Sagittal and coronal reconstruction images were performed. This study was performed with techniques to keep radiation doses as low as reasonably achievable (ALARA). Individualized dose reduction techniques using automated exposure control or adjustment of mA and/or kV according to the patient's size were employed. No fracture is identified. Moderate to severe degenerative changes of the ankle and subtalar joints. Moderate degenerative change of the calcaneocuboid and talonavicular joints. Mild lateral subluxation of the subtalar joint. No bony destruction. Moderate hallux valgus deformity with associated degenerative change. IMPRESSION: No fracture. Degenerative changes predominantly of the hindfoot. Reviewed, Interpreted and Dictated by Jeronimo Monreal MD Transcribed by Richard Copeland Authenticated and [facility]
== END ==
PROVIDERS: PCP Family Medicine; Visit Provider Podiatrist
DX: M20.41 Other hammer toe(s) (acquired), right foot (principal); M20.42 Other hammer toe(s) (acquired), left foot; M25.572 Pain in left ankle and joints of left foot
CPT/HCPCS: 73700

== ENCOUNTER 2022-07-04 14:41 | Outpatient (RCR) | payer MEDICARE, MEDICAID, SELFPAY | END 2022-07-04 14:45 | disposition home or self-care (01) | LOC: PT 14:41 | PROVIDERS: PCP Family Medicine; Visit Provider Orthopaedic Surgery Foot and Ankle Surgery | DX: M21.962 Unspecified acquired deformity of left lower leg (principal) | CPT/HCPCS: 97110; 97163 ==

== ENCOUNTER → 2022-07-28 13:06 | Outpatient (CLI) | payer MEDICARE, MEDICAID, SELFPAY ==
--- NOTE | 2022-07-28 13:11 | XR_ITS ---
FINAL REPORT CLINICAL HISTORY: R HIP PAIN FINDINGS: RIGHT HIP Two views of the right hip including an AP pelvis demonstrate no acute fracture or dislocation. There are postoperative changes from left hip arthroplasty. There are mild degenerative changes of the right hip with mild superolateral subluxation of the right femoral head. There are moderate to severe degenerative changes in the lower lumbar spine. No soft tissue abnormality is seen. IMPRESSION: Mild degenerative change of the right hip with mild superolateral subluxation of the right femoral head. Moderate to severe degenerative changes in the lower lumbar spine. Reviewed, Interpreted and Dictated by Jeovanny Pete III, MD Transcribed by Zara Tinoco Authenticated and [facility]
== END ==
PROVIDERS: PCP Family Medicine; Visit Provider Family Medicine
DX: M25.551 Pain in right hip (principal)
CPT/HCPCS: 73502

== ENCOUNTER 2022-07-31 10:00 | Outpatient (RCR) | payer MEDICARE, MEDICAID, SELFPAY ==
--- NOTE | 2022-05-06 10:37 | HMH.PTOPWND ---
Rehab Outpt Wound Evaluation Rehab OP Wound Evaluation Start: 05/06/22 10:07 Freq: Status: Active Protocol: Document 05/06/22 10:30 GERBER (Rec: 05/06/22 10:37 PHORNE [id number]) E-signed By Jonathan Hammer PT Subjective/History History History Pt is 67 yowf who presents with c/o chronic B LE edema, worse x ~ 2-3 mos. She reports pain and edema are worse toward the evening. She has hx of L foot instability and contemplating surgery that has been recommended for her. She has hx of L ARI, B TKA, CAD, anxiety, depression, OA, HTN, HL, Hypothyroid, gastric sleeve. Subjective Subjective Currently no c/o pain, 0/10, at worst 6/10 in B lower legs. TTP: 2/4 B LE in gaitor area. 2+ pitting edema noted to L ankle and lower leg. Pt has Lymphedema compression pump at home already. Lymphedema Eval Classification of Lymphedema Secondary Lymphedema Yes Stemmer's sign Stemmer's Sign no Stage of Lymphedema Lymphedema stages Stage I (Pitting edema, reduces w/ elevation, no fibrosis) Skin Changes Dry Skin Yes Skin Folds Yes Redness Yes Discoloration of Skin Yes Other Changes Yes Pain Scale Pain Scale (0-10) 6 Affected Extremities Areas Affected by Lymphedema/Edema Right Lower Extremity,Left Lower Extremity Manual Lymphatic Drainage Treatment Area MLD Treatment Area Right Lower Extremity,Left Lower Extremity Wound Problems/Impairments Impairments Problems/Impairmments Palpation Tenderness,Impaired Gait Pattern,Impaired Walking, Impaired Standing,Impaired Recreational Activities, Increased Edema,Lymphedema Present,Subjective C/O Pain, Impaired Self Care/Self Management Prognosis Rehab Potential Good Clinical Impression Consistent with Diagnosis Yes Short Term Goals Number of Weeks 2 Decreased Palpation Tenderness Yes: 1/4 B LE Increase
--- NOTE | 2022-06-10 10:50 | HMH.RHREAS ---
Rehab Reassessment Rehab OP Re-assessment Start: 06/10/22 10:46 Freq: Status: Active Protocol: Document 06/10/22 10:46 GERBER (Rec: 06/10/22 10:49 GERBER [id number]) E-signed By Jonathan Hammer, PT Rehab Re-assessment Subjective Subjective Pt reports overall having less pain, but edema remains. I know I haven't been doing as much as I really could to get my leg to feel better. Objective Objective Notes Circumferential measurements: L LE -7.6 cm total since initial eval. TTP: 08/27 to L lower leg. Pain 12/01 1+ pitting edema this date. Assessment Progress Assessment Progressing as Expected Assessment Notes Pt has shown significant decrease in overall edema and pain at this time. She continues to have some tenderness and pitting edema in the L LE and symptoms remain worse in the evening. Will continue to encourage proper Home Treatment Program. Patient goals met ST,2,3,4,5 Goals Not Met LT,2,3,4,5,6,7 Revised Goals none Plan Plan Continue per initial POC. Frequency of Therapy 2 x/wk Duration of therapy 4 wks Time and Billing Re-Eval Time 14 Re-Eval Billing Units 1 PHYSICIAN CERTIFICATION: I certify the specified therapy services for Vashti Ulrich are required, authorized, and reviewed every 30 days.
--- NOTE | 2022-07-08 12:00 | HMH.RHREAS ---
Rehab Reassessment Rehab OP Re-assessment Start: 06/10/22 10:46 Freq: Status: Active Protocol: Document 07/08/22 11:53 [email or web address] (Rec: 07/08/22 11:59 PHOBRANDI [id number]) E-signed By Jonathan Hammer, PT Rehab Re-assessment Subjective Subjective Pt reports B LE remain somewhat tender and swollen, L worse than R. Objective Objective Notes B LE thighs more swollen with palpation this date. TTP: 08/27 to L lower leg. Pain 12/01 1+ pitting edema this date in L LE gaitor area. Assessment Progress Assessment Slower Than Expected Assessment Notes Pt has unfortunately had to miss several appointments for various reasons lately and has experienced some increases in edema over the past 1-2 wks. Continues to gradually decrease tenderness to palpation. Patient goals met ST,2,3,4,5 Goals Not Met LT,2,3,4,5,6,7 Revised Goals none Plan Plan Continue per initial POC. Frequency of Therapy 2 x/wk Duration of therapy 4 wks Time and Billing Re-Eval Time 14 Re-Eval Billing Units 1 PHYSICIAN CERTIFICATION: I certify the specified therapy services for Vashti Ulrich are required, authorized, and reviewed every 30 days.
== END 2022-07-31 10:05 | disposition home or self-care (01) ==
LOC: PT 10:00
PROVIDERS: PCP Family Medicine; Visit Provider Podiatrist
DX: I89.0 Lymphedema, not elsewhere classified (principal)
CPT/HCPCS: 97140; 97162; 97164

== ENCOUNTER → 2022-10-01 12:44 | Outpatient (CLI) | payer MEDICARE, MEDICAID, SELFPAY ==
--- NOTE | 2022-10-01 12:47 | MM_ITS ---
PROCEDURE INFORMATION: Exam: MG Bilateral Screening 3D Mammography Exam date and time: 10/01/2022 12:39 PM Age: 67 years old Clinical indication: Screening. No family history of breast cancer. TECHNIQUE: Imaging protocol: Bilateral Screening tomosynthesis and 2D mammography including computer-aided detection (CAD) when performed. COMPARISON: 1. MG MM DIG SCREENING MAMM BI W/CAD 06/14/2021 10:36 AM 2. MG MM DIG SCREENING MAMM BI W/CAD 05/11/2020 4:29 PM 3. MG DIG MAMM-SCREEN IVY 03/14/2019 11:23 AM 4. MG SCBI MM Dig screening mamm BI w/CAD 11/23/2017 10:30 AM FINDINGS: MAMMOGRAPHY: Breast composition: There are scattered areas of fibroglandular density. Mass: None. Architectural distortion: None. Calcifications: No suspicious calcifications. Asymmetric density: None. Skin thickening: None. Axillary adenopathy: None. IMPRESSION: No mammographic evidence of malignancy. Annual screening is recommended unless otherwise clinically indicated. ASSESSMENT: BI-RADS Category 1: Negative
== END ==
PROVIDERS: PCP Family Medicine; Visit Provider Family Medicine
DX: Z12.31 Encounter for screening mammogram for malignant neoplasm of breast (principal)
CPT/HCPCS: 77063; 77067

== ENCOUNTER → 2022-10-08 16:23 | Outpatient (CLI) | payer MEDICARE, MEDICAID, SELFPAY ==
[2022-10-08 17:51] LABS: Basophils # 0.1 K/mm3 (0-0.2); Basophils % 0.9 % (0.1-2.0); Eosinophils # 0.2 K/mm3 (0.0-0.4); Eosinophils % 2.5 % (0.1-12.0); Hematocrit 42.3 % (37.0-47.0); Hemoglobin 13.5 g/dL (12.2-16.2); Lymphocytes # 1.6 K/mm3 (0.7-4.5); Lymphocytes % 23.3 % (10-50); Mean Corpuscular Hemoglobin 33.1 pg (27.0-31.2); Mean Corpuscular Volume 103.7 fl (81-99); Mean Platelet Volume 8.6 fl (7.4-10.4); Monocytes # 0.5 K/mm3 (0.1-1.0); Monocytes % 7.5 % (1.7-9.3); Neutrophils # 4.4 K/mm3 (1.8-7.8); Neutrophils % 65.9 % (37.0-80.0); Platelet Count 313 K/mm3 (142-424); Red Blood Count 4.08 M/mm3 (4.20-5.40); Red Cell Distribution Width 13.4 % (11.5-17.5); White Blood Count 6.7 K/mm3 (4.8-10.8)
[2022-10-08 18:30] LABS: Iron 290 ug/dL (37-170)
[2022-10-08 18:39] LABS: Total Iron Binding Capacity 311 ug/dL (265-497)
[2022-10-08 19:06] LABS: Ferritin 16.1 ng/ml (11.1-264)
[2022-10-08 19:22] LABS: Chloride 102 mmol/L (98-107); Potassium 3.8 mmoL/L (3.5-5.1); Sodium 138 mmol/L (136-145)
[2022-10-08 19:25] LABS: Alanine Aminotransferase 17 U/L (12-78); Albumin Level 3.9 g/dl (3.5-5.0); Albumin/Globulin Ratio 1.3 (1.1-1.8); Alkaline Phosphatase 106 U/L (38-126); Anion Gap 8.8 mEq/L (5-15); Aspartate Amino Transferase 29 U/L (14-36); Bilirubin,Total 0.5 mg/dl (0.2-1.3); Blood Urea Nitrogen 17 mg/dl (7-17); Carbon Dioxide 31 mmol/L (22.0-30.0); Estimated Glomerular Filt Rate 72 ml/min (>60); GFR (African American) 87 ML/MIN (>60); Total Protein,Serum 6.9 g/dl (6.3-8.2)
[2022-10-08 19:26] LABS: Calcium 9.5 mg/dl (8.4-10.2); Glucose 80 mg/dl (74-100)
[2022-10-08 19:35] LABS: Vitamin B12 975 pg/mL (239-931)
[2022-10-08 19:41] LABS: Folate > 20.00 ng/mL
== END ==
PROVIDERS: Internal Medicine Rheumatology; PCP Family Medicine; Visit Provider Internal Medicine Medical Oncology
DX: D64.9 Anemia, unspecified (principal)
CPT/HCPCS: 36415; 80053; 82607; 82728; 82746; 83540; 83550; 85025

== ENCOUNTER → 2022-12-02 07:58 | Outpatient (CLI) | payer MEDICARE, MEDICAID, SELFPAY ==
--- NOTE | 2022-12-02 08:02 | US_ITS ---
FINAL REPORT CLINICAL HISTORY: FAMILY H/O AAA FINDINGS: Limited sonographic images of the abdominal aorta were obtained. There is no evidence of abdominal aortic aneurysm. The abdominal aorta measures up to 2 cm. The iliacs are normal measuring 0.8 cm bilaterally. IMPRESSION: No evidence of abdominal aortic aneurysm. Reviewed, Interpreted and Dictated by Jeovanny Pete III, MD Transcribed by Yissel Montiel Authenticated and [facility]
== END ==
PROVIDERS: PCP Family Medicine; Visit Provider Family Medicine
DX: Z82.49 Family history of ischemic heart disease and other diseases of the circulatory system (principal); Z13.6 Encounter for screening for cardiovascular disorders
CPT/HCPCS: 76770

== ENCOUNTER 2022-12-18 11:00 | Outpatient (RCR) | payer MEDICARE, MEDICAID, SELFPAY | END 2022-12-18 11:05 | disposition home or self-care (01) | LOC: PT 11:00 | PROVIDERS: PCP Family Medicine | DX: M05.751 Rheumatoid arthritis with rheumatoid factor of right hip without organ or systems involvement (principal) | CPT/HCPCS: 97010; 97014; 97033; 97035; 97110; 97140; 97163; 97164; 97530; 97535; G0283 ==

== ENCOUNTER 2023-01-02 07:41 | Day surgery (SDC) | payer MEDICARE, MEDICAID, SELFPAY ==
[2023-01-01 14:16] VITALS: BMI 38.2
[2023-01-02 07:57] VITALS: BP 121/69; PULSE 60; RESP 18; TEMP 36.5; O2SAT 96
[2023-01-02 08:21] VITALS: O2SAT 5
--- NOTE | 2023-01-02 08:33 | HMH.SCOPE ---
Procedure: Date: 01/02/23 Patient Date of :: 1955 Procedure Performed:: Esophagogastroduodenoscopy with biopsies Indications:: Patient is a 67-year-old somewhat debilitated female whom I had seen in the past for iron deficiency anemia. She had sleeve gastrectomy for obesity performed by Dr. Ilya Clark in 2014. She has had previous colonoscopies. I performed colonoscopy and EGD as work-up for iron deficiency anemia on 12/19/2020. She was found to have some gastritis in the gastric sleeve remnant which was biopsied and returned as reactive gastropathy with focal complete intestinal metaplasia . H. pylori was negative. I had recommended a 3-year follow-up colonoscopy which would be November 2023. I recommended a 6-month follow-up EGD given the findings on pathology described as intestinal metaplasia . She had presented for EGD scheduled as a self-referral on 10/21/2022. Her iron deficiency anemia has improved and she is seeing hematology at this facility. She does have some reflux GERD symptoms. Performing Provider:: Jeovanny Posey MD Referring Provider:: Diego Guadarrama MD Sedation:: MAC sedation Procedure:: Patient was taken to endoscopy procedure room. She was positioned in lateral decubitus position. Adequate intravenous sedation was achieved. Olympus endoscope was inserted via the oropharynx. She had some tortuosity of the esophagus consistent with presbyesophagus as would be seen with esophageal dysmotility. Overall esophageal mucosa appeared normal. Gastroesophageal junction was encountered at 30 cm. Stomach was cannulated and insufflated. There was some mild nonerosive gastritis/gastropathy. Retroflexion was performed and anatomy was somewhat altered due to previous sleeve gastrectomy but there was no definite hiatal hernia. Pylorus was traversed. Duodenum appeared unremarkable. Multiple biopsies were obtained within the residual gastric antrum to evaluate for intestinal metaplasia. A couple biopsies were obtained at the gastroesophageal junction. Biopsy was obtained of the distal esophagus. Stomach was desufflated and the endoscope was withdrawn. Findings:: Gastroesophageal junction at 30 cm Altered gastric anatomy secondary to sleeve gastrectomy Mild gastritis/gastropathy Recommendations:: No changes at this time. Follow-up on histopathology Complications:: None immediately apparent Estimated blood obtained (mL): 2
[2023-01-02 08:40] VITALS: BP 116/52; PULSE 64; RESP 16; TEMP 36.1; O2SAT 95
--- NOTE | 2023-01-02 08:48 | P.PN_ITS ---
[facility] Disclaimer: The information contained in this section may have been updated after the patient was seen, as this information can be updated by other users. Medical History Allergies Anemia Anxiety Arthritis Asthma CAD (coronary artery disease) Cataracts, bilateral Depression Edema Encounter for gastric sleeve procedure Generalized anxiety disorder Hepatitis History of anemia History of COVID-19 History of gastroesophageal reflux (GERD) HLD (hyperlipidemia) HTN (hypertension) Hypothyroidism Lung disease Major depressive disorder Migraine Mitral valve regurgitation MRSA (methicillin resistant Staphylococcus aureus) LUCILA (obstructive sleep apnea) Pneumonia Pulmonary hypertension Tardive dyskinesia Thyroid disease Urinary tract infection Surgical History H/O gastric sleeve History of arthroscopy of both knees History of cholecystectomy History of colonoscopy History of esophagogastroduodenoscopy (EGD) History of total left hip replacement Family History Other Cancer Family history of Alzheimer's disease Family history of diabetes mellitus type II Hypertension Thyroid disorder Social History Smoking Status: Former smoker pack-years: 40 alcohol intake: never substance use type: denies use current occupational status: retired Travel in the last 8 weeks: Inside the [place] household members: spouse housing: house number of children: 2 current occupation: retired caffeine: Yes [facility] Anesthesia Checklist Patient Identification Patient Identification: Arm Band and Family Structural Data Admitted From: Home Planned Operative Procedure/s: EGD Consent for Planned Operative Procedure(s) Verified: Yes Verified Documents: Surgical Consent NPO Status Verified Time NPO: 00:00 Additional verifications Patient : No Anesthesia Reactions: No Hx Blood Transfusions: No Blood Transfusion Reaction: No Cephalosporin Allergy: No Airway Assessment C-Spine Mobility Assessed: Yes TMJ Mobility Assessed: Yes Dentition: Good Dentition Neurological Assessment Level of Consciousness: Awake, Alert, Appropriate and Follows Commands Hx Seizures: No Numbness or tingling in extremities: No Anesthesia Plan Anesthesia Risk discussed: Yes ASA Class: II Anesthesia Type: MAC Preoperative Comments Pre-Operative Comments: mitral valve murmur. Hypertension. Hep A as a child. Borderline DM.
[2023-01-02 08:50] VITALS: BP 113/59; PULSE 64; RESP 16; TEMP 36.1; O2SAT 95
--- NOTE | 2023-01-02 08:50 | EXP.ANES.CKL ---
[facility] Disclaimer: The information contained in this section may have been updated after the patient was seen, as this information can be updated by other users. Medical History Allergies Anemia Anxiety Arthritis Asthma CAD (coronary artery disease) Cataracts, bilateral Depression Edema Encounter for gastric sleeve procedure Generalized anxiety disorder Hepatitis History of anemia History of COVID-19 History of gastroesophageal reflux (GERD) HLD (hyperlipidemia) HTN (hypertension) Hypothyroidism Lung disease Major depressive disorder Migraine Mitral valve regurgitation MRSA (methicillin resistant Staphylococcus aureus) LUCILA (obstructive sleep apnea) Pneumonia Pulmonary hypertension Tardive dyskinesia Thyroid disease Urinary tract infection Surgical History H/O gastric sleeve History of arthroscopy of both knees History of cholecystectomy History of colonoscopy History of esophagogastroduodenoscopy (EGD) History of total left hip replacement Family History Other Cancer Family history of Alzheimer's disease Family history of diabetes mellitus type II Hypertension Thyroid disorder Social History Smoking Status: Former smoker pack-years: 40 alcohol intake: never substance use type: denies use current occupational status: retired Travel in the last 8 weeks: Inside the [place] household members: spouse housing: house number of children: 2 current occupation: retired caffeine: Yes [facility] Anesthesia Checklist Patient Identification Patient Identification: Arm Band and Family Structural Data Admitted From: Home Planned Operative Procedure/s: EGD Consent for Planned Operative Procedure(s) Verified: Yes Verified Documents: Surgical Consent and History and Physical NPO Status Verified Time NPO: 00:00 Additional verifications Patient : No Anesthesia Reactions: No Hx Blood Transfusions: No Blood Transfusion Reaction: No Cephalosporin Allergy: No Previous Colonoscopy: Yes Airway Assessment C-Spine Mobility Assessed: Yes TMJ Mobility Assessed: Yes Dentition: Good Dentition Neurological Assessment Level of Consciousness: Awake, Alert and Appropriate Hx Seizures: No Numbness or tingling in extremities: No Anesthesia Plan ASA Class: II Anesthesia Type: MAC Preoperative Comments Pre-Operative Comments: hYPERTENSION
[2023-01-02 09:00] VITALS: BP 108/53; PULSE 59; RESP 18; TEMP 36.1; O2SAT 96
[2023-01-02 09:15] VITALS: BP 116/59; PULSE 65; RESP 18; TEMP 36.1; O2SAT 96
== END 2023-01-02 09:15 | disposition home or self-care (01) ==
PROVIDERS: PCP Family Medicine; Visit Provider Surgery
PROC: 0DJ08ZZ Inspection of Upper Intestinal Tract, Via Natural or Artificial Opening Endoscopic (ICD-10-PCS; CPT 43235; principal; 2023-01-02 08:30)
DX: D50.9 Iron deficiency anemia, unspecified (principal); K29.50 Unspecified chronic gastritis without bleeding; K21.9 Gastro-esophageal reflux disease without esophagitis
CPT/HCPCS: 43239; 88305; 88342